=== PATIENT | male | born 1970 | race Caucasian/White ===

== ENCOUNTER 2017-07-24 13:07 | Inpatient (IN) | payer OTHER ==
[~2017-07-24] VITALS: Ht 182.9 cm; Wt 109.8 kg
[~2017-07-24 13:07] MED LIST: EMTR1TAB12 PO; LACT10SO29 PO; MULT-70 PO; STRIBILD PO; SULF1TAB44 PO
--- NOTE | 2017-07-24 13:20 | NUR ---
Was seen independently by myself. Subjective: 47 -year-old male presents the emergency room with chest pain of uncertain etiology Objective: Patient appears hemodynamically stable at this time and appears comfortable Assessment/plan: Given his age and his examination, patient will undergo a chest pain workup with anticipated admission to rule out myocardial infarction.
[2017-07-24 13:22] LABS: BASOPHILS % (AUTO) 0.8 % (0.0-2.0); EOSINOPHILS # (AUTO) 0.1 /CMM (0.0-0.7); HEMATOCRIT 35 % (39-51); LYMPHOCYTES # (AUTO) 1.3 /CMM (0.8-4.8); LYMPHOCYTES % (AUTO) 26.8 % (20.0-44.0); MEAN CORPUSCULAR HEMOGLOBIN 33 PG (26.0-33.0); MEAN CORPUSCULAR HGB CONC 34 g/dl (31.0-36.0); MEAN CORPUSCULAR VOLUME 96 fL (80-96); MONOCYTES # (AUTO) 0.5 /CMM (0.1-1.30); MONOCYTES % (AUTO) 9.8 % (2.0-12.0); NEUTROPHILS % (AUTO) 60.6 % (43.0-81.0); PLATELET COUNT (AUTO) 116 /CMM (150-450); RDW COEFFICIENT OF VARIATION 14.1 (11.5-15.0); RED BLOOD CELL COUNT(AUTO) 3.67 MIL/uL (4.5-6.0); WHITE BLOOD COUNT (AUTO) 4.9 K/uL (4.3-11.0)
[2017-07-24] MEDS ORDERED: ONDANSETRON HCL/PF 4 MG/2 ML VIAL ONE (13:24)
[2017-07-24] MEDS ORDERED: MORPHINE SULFATE INJ 4 MG/ML DISP.SYRIN ONE ×2 (13:25→14:08)
[2017-07-24] MEDS ORDERED: ASPIRIN 325 MG TABLET ONE (13:25)
--- NOTE | 2017-07-24 13:25 | NUR ---
NEW IV STARTED ON RIGHT HAND, 20 G. BLOOD DRAWN AND SENT TO LAB.
[2017-07-24] MEDS ORDERED: ONDANSETRON HCL/PF 4 MG/2 ML VIAL IVP ONE (13:30)
[2017-07-24] MEDS ORDERED: MORPHINE SULFATE INJ 2 MG/ML DISP.SYRIN IV ONE ×2 (13:30→14:30)
[2017-07-24] MEDS ORDERED: ASPIRIN 325 MG TABLET PO ONE (13:30)
[2017-07-24 13:32] LABS: CALCIUM, SERUM 8.6 mg/dL (8.5-10.1); CREATININE 0.9 mg/dL (0.6-1.3); POTASSIUM 4.5 mmol/L (3.5-5.1)
[2017-07-24 13:37] LABS: INR 1.06 (0.87-1.13)
[2017-07-24 13:38] LABS: ALBUMIN 2.7 g/dL (3.4-5.0); BILIRUBIN,DIRECT 0.5 mg/dL (0.0-0.2); BILIRUBIN,TOTAL 1.2 mg/dL (0.2-1.0); TOTAL PROTEIN, SERUM 7.7 g/dL (6.4-8.2)
[2017-07-24 13:39] LABS: TROPONIN I 0.025 ng/mL (0.00-0.056)
[2017-07-24] MEDS ORDERED: EMTR1TAB17 PO (14:12)
[2017-07-24] MEDS ORDERED: DOLU50TA PO (14:12)
[2017-07-24] MEDS ORDERED: MULT1TAB62 PO (14:12)
[2017-07-24] MEDS ORDERED: SPIR100T3 PO (14:12)
[2017-07-24] MEDS ORDERED: GABA-534 PO (14:12)
[2017-07-24] MEDS ORDERED: TRAM50TA2 PO (14:12)
--- NOTE | 2017-07-24 14:12 | NUR ---
PATIENT STILL C/O 10/10 CHEST PAIN, DASH INFORMED, ORDERED ANOTHER 4MG MORPHINE. MEDICATION ADMINISTERED.
--- NOTE | 2017-07-24 14:51 | NUR ---
PATIENTS BLOOD PRESSURE READING 77/36. MMI TEACHER, DASH INFORMED AND ORDERED 500ML NS, BUT UPON REASSESSMENT. PATIENTS BLOOD PRESSURE WAS NORMAL, 146/77. NORMAL SALINE NOT ADMINISTERED AT THIS TIME.
[2017-07-24] MEDS ORDERED: IV NS 0.9% 500 ML BAG IV ONE (15:00)
--- NOTE | 2017-07-24 15:15 | NUR ---
REPORT GIVEN TO MARYANN SOTO FOR ADMISSION.
--- NOTE | 2017-07-24 15:40 | NUR ---
PATIENT TRANSPORTED TO [facility] VIA ACLS PROTOCOL.
[2017-07-24 16:00] VITALS: BP 144/90
--- NOTE | 2017-07-24 16:00 | NUR ---
COMPLIANCE REPRESENTATIVE NOTES RECEIVED PATIENT FROM ER VIA GURNEY. PATIENT ALERT AND ORIENTED X 4. PATIENT AMBULATORY. NO ACUTE DISTRESS, NO SOB. COMPLAIN OF CHEST PAIN 9/10 SHARP, ACHING, NON-RADIATING. NOTIFIED MD, NEW ORDERS NOTED AND CARRIED OUT. IV SITE INTACT AND PATENT. KEPT PATIENT SAFE AND COMFORTABLE. BED IN LOW POSITION, LOCKED, SIDERAILS UP X2, CALL LIGHT WITHIN REACH. WILL CONTINUE TO MONITOR ACCORDINGLY.
[2017-07-24 16:15] VITALS: BP 144/90
[2017-07-24] MEDS ORDERED: ONDANSETRON HCL/PF 4 MG/2 ML VIAL IVP PRN (16:30)
[2017-07-24] MEDS ORDERED: ACETAMINOPHEN 325 MG TABLET PO PRN (16:30)
[2017-07-24] MEDS ORDERED: Z GUARD REMEDY 2 OZ OINT TP PRN (16:30)
[2017-07-24] MEDS ORDERED: MAGNESIUM HYDROXIDE 30 ML UDC PO PRN (16:30)
[2017-07-24] MEDS ORDERED: ENOXAPARIN SODIUM 40 MG/0.4 ML DISP.SYRIN SQ SCH (16:30)
[2017-07-24] MEDS ORDERED: HYDROCODONE/APAP 5/325MG 1 EACH TABLET PO PRN (16:30)
[2017-07-24] MEDS ORDERED: MAG HYDROX/AL HYDROX/SIMETH 30 ML UDC PO PRN (16:30)
[2017-07-24] MEDS ORDERED: ZOLPIDEM TARTRATE 5 MG TABLET PO PRN (16:30)
[2017-07-24] MEDS: IV NS 0.9% 1,000 ML IV PRN (16:54)
[2017-07-24] MEDS: MORPHINE SULFATE INJ 2 MG/ML DISP.SYRIN IV PRN ×2 (17:24→21:19)
[2017-07-24] MEDS ORDERED: GABAPENTIN 300 MG CAPSULE PO SCH (18:00)
--- NOTE | 2017-07-24 18:45 | NUR ---
RN NOTES PATIENT SAID HE WILL PROVIDE A COPY OF ADVANCE DIRECTIVES. ENDORSED TO ANTISUBMARINE WEAPONS OFFICER RN TO FOLLOW UP ADVANCE DIRECTIVES.
--- NOTE | 2017-07-24 19:00 | NUR ---
MEDICAL ONCOLOGIST NOTES PATIENT IN BED RESTING. NO ACUTE DISTRESS, NO SOB NOTED. ALL NEEDS ATTENDED AND PROVIDED. KEPT PATIENT SAFE AND COMFORTABLE. ENDORSED TO LACE WEAVER RN FOR CORBY.
[2017-07-24 20:00] VITALS: BP 145/105
--- NOTE | 2017-07-24 20:01 | NUR ---
RN NOTES RECEIVED PATIENT IN BED, ALERT AND ORIENTED X4, ANXIOUS, COMPLAINING OF CHEST PAIN OF 8/10, RECEIVED MORPHINE 2HRS AGO, WHEEZING, ON 2LPM VIA NC, SPO2 96%, ABLE TO VERBALIZE NEEDS, BP 145/105 HR 65, PER TELE MONITOR SR 75, NO DIAPHORESIS, NO RESTLESSNESS, KEPT HOB ELEVATED, REPOSITIONED FOR COMFORT, CALL LIGHT WITHIN REACH, WILL NOTIFY RAILWAY SIGNAL OPERATOR MD.
--- NOTE | 2017-07-24 20:17 | NUR ---
RN NOTES NOTIFIED ELECTRIC SCOOP OPERATOR DR. RANDALL GOMEZ ORDERED CLONIDINE 0.1 MG Q6HRS PRN FOR SBP > 160 OR DBP > 100, ORDER NOTED AND CARRIED OUT.
[2017-07-24] MEDS ORDERED: CLONIDINE HCL 0.1 MG TABLET PO PRN (20:30)
--- NOTE | 2017-07-24 20:50 | NUR ---
RN NOTES RECHECKED BP 143/67 HR 71, WILL CONTINUE TO MONITOR BP
--- NOTE | 2017-07-24 21:23 | NUR ---
RN NOTES COMPLAINING OF LEFT CHEST PAIN DESCRIBED PINCHING 10/10 ON THE PAIN SCALE. PER PATIENT WHEN TURNING TO LEFT SIDE, CHEST PAIN IS AT MOST PAINFUL, GIVEN MORPHINE 2 MG IVP, VSS, EDUCATED PATIENT ON MEDICATION SCHEDULE AND ADVERSE SIDE EFFECTS. WILL CONTINUE TO MONITOR, CALL LIGHT WITHIN REACH.
[2017-07-25] VITALS: BP 126/103
[2017-07-25] MEDS: MORPHINE SULFATE INJ 2 MG/ML DISP.SYRIN IV PRN ×2 (01:50→05:38)
[2017-07-25 04:00] VITALS: BP 144/75
[2017-07-25] MEDS: IV NS 0.9% 1,000 ML IV PRN (04:15)
--- NOTE | 2017-07-25 06:54 | NUR ---
RN NOTES PATIENT IN BED, ALERT AND AWAKE, ON 2LPM VIA NC, SPO2 98%, COMPLAINED OF CHEST PAIN OF 10/10, GIVEN MORPHINE 2MG IVP DURING SHIFT, TROPONIN IS NORMAL. RIGHT HAND PERIPHERAL LINE IS PATENT AND INFUSING WELL, NEEDS ATTENDED, CALL LIGHT WITHIN REACH.
[2017-07-25] MEDS ORDERED: PANTOPRAZOLE 40 MG TABLET.DR PO SCH (07:30)
--- NOTE | 2017-07-25 07:30 | NUR ---
TELE/RN OPENING NOTES RECEIVED PT. IN BED A&OX4. BREATHING UNLABORED ON OXYGEN 2L/MIN WITH NASAL CANNULA. NO S/S OF ACUTE DISTRESS. BED IS IN LOWQ POSITION, 2 SIDE RAILS UP, AND INSTRUCTED PT. TO USE CALL LIGHT FOR ASSISTANCE. ALL NEEDS MET AT THIS TIME, WILL CONTINUE TO ASSESS AND MONITOR.
--- NOTE | 2017-07-25 07:30 | NUR ---
TELE/ RN NOTES PT. TELE MONITOR READING SINUS RHYTHM 67 BPM.
[2017-07-25 07:33] LABS: BASOPHILS % (AUTO) 0.3 % (0.0-2.0); EOSINOPHILS # (AUTO) 0.1 /CMM (0.0-0.7); EOSINOPHILS % (AUTO) 2.6 % (0.0-6.0); HEMATOCRIT 32 % (39-51); HEMOGLOBIN 11.1 g/dL (13.5-17.5); LYMPHOCYTES % (AUTO) 22.5 % (20.0-44.0); MEAN CORPUSCULAR HEMOGLOBIN 33 PG (26.0-33.0); MEAN CORPUSCULAR HGB CONC 34 g/dl (31.0-36.0); MEAN CORPUSCULAR VOLUME 97 fL (80-96); MONOCYTES # (AUTO) 0.6 /CMM (0.1-1.30); NEUTROPHILS # (AUTO) 2.8 /CMM (1.8-8.9); NEUTROPHILS % (AUTO) 61.6 % (43.0-81.0); PLATELET COUNT (AUTO) 101 /CMM (150-450); RDW COEFFICIENT OF VARIATION 14.9 (11.5-15.0); RED BLOOD CELL COUNT(AUTO) 3.33 MIL/uL (4.5-6.0); WHITE BLOOD COUNT (AUTO) 4.6 K/uL (4.3-11.0)
[2017-07-25 08:00] VITALS: BP 145/79
[2017-07-25] MEDS ORDERED: EMTRICITABINE/TENOFOVIR 1 TAB PO SCH (09:00)
[2017-07-25] MEDS ORDERED: SPIRONOLACTONE 25 MG TABLET PO SCH (09:00)
[2017-07-25] MEDS ORDERED: MULTIVIT, IRON, MIN NO. 8, FA 1 TAB PO SCH (09:00)
[2017-07-25] MEDS ORDERED: TRAMADOL HCL 50 MG TABLET PO SCH (09:00)
[2017-07-25] MEDS ORDERED: ASPIRIN 325 MG TABLET PO SCH (09:00)
[2017-07-25] MEDS ORDERED: Medication Not On Formulary EA (Emtricitabine/Tenofov Alafenam (Descovy 200-25 mg Tablet PO SCH (09:00)
[2017-07-25] MEDS ORDERED: Medication Not On Formulary EA (Dolutegravir Sodium (Tivicay) 50 MG) PO SCH (09:00)
[2017-07-25] MEDS ORDERED: SPIRONOLACTONE 50 MG TABLET PO SCH (09:00)
[2017-07-25 09:24] LABS: CALCIUM, SERUM 8.2 mg/dL (8.5-10.1); CREATININE 0.9 mg/dL (0.6-1.3); MAGNESIUM 1.9 mg/dL (1.8-2.4); PHOSPHORUS 3.8 mg/dL (2.5-4.9)
[2017-07-25 09:52] LABS: IRON, SERUM 234 ug/dl (50-175); TOTAL IRON BINDING CAPACITY 334 ug/dl (250-450)
[2017-07-25 10:06] LABS: FERRITIN 89 ng/mL (8-388)
--- NOTE | 2017-07-25 14:40 | NUR ---
RN NOTES PT. IS IN MEDICALLY STABLE CONDITION. PT. WAS PROVIDED DISCHARGE INSTRUCTIONS, PAPERS WERE SIGNED AND PT. VERBALIZED UNDERSTANDING. PT.'S BELONGINGS WERE CHECKED, AND SIGNED. ALL QUESTIONS WERE ANSWERED.
--- NOTE | 2017-07-25 15:01 | NUR ---
RN NOTES DISCHARGE PT. LEFT IN MEDICALLY STABLE CONDITION, PT. WAS ABLE TO AMBULATE TO MAIN [facility]. PT. LEFT IN PRIVATE CARE ACCOMPANIED BY HIS MOTHER.
== END 2017-07-25 15:00 | disposition home or self-care (01) | DRG 313 ==
LOC: ER 13:08 → TELE 15:13 → MED 07-25 11:26
PROVIDERS: ADMIT Internal Medicine; ATTEND Internal Medicine
DX: R07.89 Other chest pain (principal); E43 Unspecified severe protein-calorie malnutrition; D69.59 Other secondary thrombocytopenia; B19.20 Unspecified viral hepatitis C without hepatic coma; D63.8 Anemia in other chronic diseases classified elsewhere; E66.9 Obesity, unspecified; K74.60 Unspecified cirrhosis of liver; Z79.899 Other long term (current) drug therapy; Z90.49 Acquired absence of other specified parts of digestive tract; F41.9 Anxiety disorder, unspecified; F32.9 Major depressive disorder, single episode, unspecified; Z76.5 Malingerer [conscious simulation]
CPT/HCPCS: 36415; 71010-TC; 80048-TC; 80061-TC; 80076-TC; 82728-TC; 83540-TC; 83735-TC; 84100-TC; 84484-TC; 85025-TC; 85730-TC; 87081-TC; A4606; J2270; J2405; J7030; J7040; Z7610

== ENCOUNTER 2017-08-08 21:50 | Inpatient (IN) | payer OTHER ==
[~2017-08-08] VITALS: Ht 182.9 cm; Wt 107.5 kg
[~2017-08-08 21:50] MED LIST changes: +DOLU50TA PO; -EMTR1TAB12 PO; +EMTR1TAB17 PO; +GABA-534 PO; -LACT10SO29 PO; -MULT-70 PO; +MULT1TAB62 PO; +SPIR100T3 PO; -STRIBILD PO; -SULF1TAB44 PO; +TRAM50TA2 PO
[2017-08-08 22:37] LABS: BASOPHILS % (AUTO) 0.3 % (0.0-2.0); EOSINOPHILS # (AUTO) 0.1 /CMM (0.0-0.7); EOSINOPHILS % (AUTO) 2.3 % (0.0-6.0); HEMATOCRIT 33 % (39-51); HEMOGLOBIN 11.3 g/dL (13.5-17.5); LYMPHOCYTES # (AUTO) 1.3 /CMM (0.8-4.8); LYMPHOCYTES % (AUTO) 20.3 % (20.0-44.0); MEAN CORPUSCULAR HEMOGLOBIN 33 PG (26.0-33.0); MEAN CORPUSCULAR HGB CONC 34 g/dl (31.0-36.0); MEAN CORPUSCULAR VOLUME 96 fL (80-96); MONOCYTES # (AUTO) 0.7 /CMM (0.1-1.30); MONOCYTES % (AUTO) 10.6 % (2.0-12.0); NEUTROPHILS # (AUTO) 4.3 /CMM (1.8-8.9); NEUTROPHILS % (AUTO) 66.5 % (43.0-81.0); PLATELET COUNT (AUTO) 124 /CMM (150-450); RDW COEFFICIENT OF VARIATION 15.4 (11.5-15.0); RED BLOOD CELL COUNT(AUTO) 3.46 MIL/uL (4.5-6.0); WHITE BLOOD COUNT (AUTO) 6.5 K/uL (4.3-11.0)
[2017-08-08 22:44] LABS: CALCIUM, SERUM 8.5 mg/dL (8.5-10.1); CREATININE 0.8 mg/dL (0.6-1.3); POTASSIUM 4.2 mmol/L (3.5-5.1)
[2017-08-09 01:00] VITALS: BP 143/71
[2017-08-09 04:00] VITALS: BP 139/65
[2017-08-09 08:08] VITALS: BP 140/70
[2017-08-09 16:00] VITALS: BP 119/71
[2017-08-09 17:12] LABS: APPEARANCE,URINE CLEAR (CLEAR); BILIRUBIN,URINE NEGATIVE (NEGATIVE); BLOOD, URINE NEGATIVE Ery/uL (NEGATIVE); COLOR,URINE YELLOW (YELLOW); KETONES,URINE NEGATIVE (NEGATIVE); LEUKOCYTE ESTERASE ,URINE NEGATIVE (NEGATIVE); NITRITE, URINE NEGATIVE (NEGATIVE); PROTEIN,URINE NEGATIVE (NEGATIVE); UGLUCOSE NEGATIVE (NEGATIVE)
[2017-08-09 17:44] LABS: BACTERIA,URINE None seen /HPF (None Seen); RBC,URINE 0-2 /HPF (0-2); SQUAMOUS EPITHELIAL CELL,UR 0-2 /HPF (None Seen); WBC,URINE 0-2 /HPF (0-3)
[2017-08-09 20:00] VITALS: BP 92/62
[2017-08-10] VITALS: BP 124/58
[2017-08-10 04:00] VITALS: BP 105/53
[2017-08-10 06:38] LABS: INR 1.06 (0.87-1.13); PROTHROMBIN TIME 11.4 SECS (9.5-12.7)
[2017-08-10 06:41] LABS: BASOPHILS % (AUTO) 0.3 % (0.0-2.0); EOSINOPHILS # (AUTO) 0.2 /CMM (0.0-0.7); EOSINOPHILS % (AUTO) 4.2 % (0.0-6.0); HEMATOCRIT 30 % (39-51); HEMOGLOBIN 10.3 g/dL (13.5-17.5); LYMPHOCYTES # (AUTO) 0.9 /CMM (0.8-4.8); LYMPHOCYTES % (AUTO) 25.9 % (20.0-44.0); MEAN CORPUSCULAR HEMOGLOBIN 34 PG (26.0-33.0); MEAN CORPUSCULAR HGB CONC 35 g/dl (31.0-36.0); MEAN CORPUSCULAR VOLUME 96 fL (80-96); MONOCYTES # (AUTO) 0.4 /CMM (0.1-1.30); MONOCYTES % (AUTO) 10.8 % (2.0-12.0); NEUTROPHILS # (AUTO) 2.1 /CMM (1.8-8.9); NEUTROPHILS % (AUTO) 58.8 % (43.0-81.0); PLATELET COUNT (AUTO) 102 /CMM (150-450); RDW COEFFICIENT OF VARIATION 15.1 (11.5-15.0); RED BLOOD CELL COUNT(AUTO) 3.09 MIL/uL (4.5-6.0); WHITE BLOOD COUNT (AUTO) 3.6 K/uL (4.3-11.0)
[2017-08-10 06:52] LABS: ALBUMIN 2.3 g/dL (3.4-5.0); BILIRUBIN,DIRECT 0.5 mg/dL (0.0-0.2); BILIRUBIN,TOTAL 1.6 mg/dL (0.2-1.0); CALCIUM, SERUM 7.9 mg/dL (8.5-10.1); CREATININE 0.8 mg/dL (0.6-1.3); MAGNESIUM 1.8 mg/dL (1.8-2.4); PHOSPHORUS 3.6 mg/dL (2.5-4.9); POTASSIUM 3.9 mmol/L (3.5-5.1); TOTAL PROTEIN, SERUM 6.4 g/dL (6.4-8.2)
[2017-08-10 07:15] VITALS: BP 95/50
[2017-08-10 08:00] VITALS: BP 96/50
[2017-08-10] MEDS ORDERED: HYDR-552 PO (15:22)
== END 2017-08-10 18:13 | disposition home or self-care (01) | DRG 185 ==
LOC: ER 21:51 → TELE 08-09 00:41 → MED 08-10 08:30
PROVIDERS: ADMIT Internal Medicine; ATTEND Internal Medicine
DX: S22.42XA Multiple fractures of ribs, left side, initial encounter for closed fracture (principal); K74.60 Unspecified cirrhosis of liver; D73.2 Chronic congestive splenomegaly; J43.9 Emphysema, unspecified; N28.1 Cyst of kidney, acquired; S01.81XA Laceration without foreign body of other part of head, initial encounter; D63.8 Anemia in other chronic diseases classified elsewhere; R16.1 Splenomegaly, not elsewhere classified; G89.29 Other chronic pain; Y92.89 Other specified places as the place of occurrence of the external cause; Z86.19 Personal history of other infectious and parasitic diseases; Z90.49 Acquired absence of other specified parts of digestive tract; I51.7 Cardiomegaly; I86.8 Varicose veins of other specified sites; W01.0XXA Fall on same level from slipping, tripping and stumbling without subsequent striking against object, initial encounter; Y93.9 Activity, unspecified; Y99.9 Unspecified external cause status; K21.9 Gastro-esophageal reflux disease without esophagitis
CPT/HCPCS: 36415; 70450-TC; 71010-TC; 71260-TC; 73060-TC; 73090-TC; 76700-TC; 80048-TC; 80061-TC; 80076-TC; 81000-TC; 83540-TC; 83735-TC; 84100-TC; 85025-TC; 85730-TC; 87081-TC; 87086-TC; 93307-TC; 97116-TC; 97530-TC; A4606; A6402; J2270; J2405; J3490; J7050; Q9967; Z7610

== ENCOUNTER 2017-10-31 17:57 | Emergency (ER) | payer OTHER ==
[~2017-10-31] VITALS: Ht 172.7 cm; Wt 83.9 kg
[~2017-10-31 17:57] MED LIST changes: +HYDR-552 PO
[2017-10-31 18:13] VITALS: BP 154/89
[2017-10-31] MEDS ORDERED: HYDROCODONE/APAP 5/325MG 1 EACH TABLET ONE (18:40)
[2017-10-31] MEDS ORDERED: HYDROCODONE/APAP 5/325MG 1 EACH TABLET PO ONE (19:00)
== END 2017-10-31 19:03 | disposition home or self-care (01) ==
LOC: ER 17:58
DX: K02.9 Dental caries, unspecified (principal); Z86.19 Personal history of other infectious and parasitic diseases; Z90.49 Acquired absence of other specified parts of digestive tract
CPT/HCPCS: A4606; Z7610

== ENCOUNTER 2019-02-23 23:49 | Inpatient (IN) | payer OTHER ==
[~2019-02-23] VITALS: Ht 182.9 cm; Wt 105.2 kg
[~2019-02-23 23:49] MED LIST changes: +HYDR-4384 PO; -HYDR-552 PO; -SPIR100T3 PO; +SPIR100T5 PO
[2019-02-24] VITALS (8 sets, daily range): BP systolic 105–123; BP diastolic 51–74
--- NOTE | 2019-02-24 00:06 | NUR ---
PT BIBWIFE FROM HOME C/C SOB X1 WEEK W/ NON PRODUCTIVE COUGH. FEBRILE. -N/V/D. DENIES CP. C/O OF CHRONIC RUQ ABD PAIN NR. NAD NOTED. PT ON MONITOR IN BED 11. WILL CONTINUE TO MONITOR.
--- NOTE | 2019-02-24 00:13 | NUR ---
AT BEDSIDE FOR EVAL
--- NOTE | 2019-02-24 00:24 | NUR ---
RT CALLED FOR BREATHING TREATMENT
[2019-02-24] MEDS ORDERED: ALBUTEROL FS 2.5 MG/3 ML VIAL.NEB ONE (00:27)
[2019-02-24] MEDS ORDERED: IPRATROPIUM NEB FS 0.5 MG/2.5 ML AMPUL.NEB ONE (00:27)
[2019-02-24] MEDS ORDERED: methylPREDNISolone SOD SUCC 125 MG/2ML VIAL IV ONE (00:30)
[2019-02-24] MEDS ORDERED: IPRATROPIUM NEB FS 0.5 MG/2.5 ML AMPUL.NEB NEB ONE (00:30)
[2019-02-24] MEDS ORDERED: ALBUTEROL FS 2.5 MG/3 ML VIAL.NEB CONTNEB ONE (00:30)
[2019-02-24] MEDS ORDERED: methylPREDNISolone SOD SUCC 125 MG/2ML VIAL ONE (00:31)
--- NOTE | 2019-02-24 00:40 | NUR ---
BLOOD DRAWN AND GIVEN TO LAB
--- NOTE | 2019-02-24 00:44 | NUR ---
TECH AT BEDSIDE FOR EKG
[2019-02-24 00:51] LABS: BASOPHILS % (AUTO) 0.3 % (0.0-2.0); EOSINOPHILS % (AUTO) 0.2 % (0.0-6.0); HEMATOCRIT 32 % (39-51); HEMOGLOBIN 11.1 g/dL (13.5-17.5); LYMPHOCYTES % (AUTO) 15.7 % (20.0-44.0); MEAN CORPUSCULAR HGB CONC 35 g/dl (31.0-36.0); MEAN CORPUSCULAR VOLUME 92 fL (80-96); MONOCYTES # (AUTO) 0.8 /CMM (0.1-1.30); MONOCYTES % (AUTO) 11.5 % (2.0-12.0); NEUTROPHILS # (AUTO) 4.8 /CMM (1.8-8.9); NEUTROPHILS % (AUTO) 72.3 % (43.0-81.0); PLATELET COUNT (AUTO) 124 /CMM (150-450); RED BLOOD CELL COUNT(AUTO) 3.45 MIL/uL (4.5-6.0); WHITE BLOOD COUNT (AUTO) 6.6 K/uL (4.3-11.0)
--- NOTE | 2019-02-24 00:52 | NUR ---
RADIOLOGY AT BEDSIDE FOR XRAY
[2019-02-24 01:25] LABS: SERUM AMMONIA 58 umol/L (11-32)
[2019-02-24 01:27] LABS: ALCOHOL, BLOOD < 3 mg/dL (0-0)
[2019-02-24] MEDS ORDERED: IV NS 0.9% 1,000 ML BAG IV ONE ×2 (01:30→03:30)
[2019-02-24] MEDS ORDERED: VANCOMYCIN 1 GM in IV D5W 250 ML IV ONE (01:30)
[2019-02-24] MEDS ORDERED: PIPERACILLIN /TAZOBACTAM 3.375 G in IV D5W 50 ML IV ONE (01:30)
[2019-02-24 01:34] LABS: CALCIUM, SERUM 8.7 mg/dL (8.5-10.1); CARBON DIOXIDE 20 mmol/L (21-32); CHLORIDE 100 mmol/L (98-107); CREATININE 1.1 mg/dL (0.6-1.3); GLUCOSE 115 mg/dL (74-106); POTASSIUM 2.9 mmol/L (3.5-5.1); SODIUM SERUM 133 mmol/L (136-145); UREA NITROGEN, BLOOD 16 mg/dL (7-18)
[2019-02-24 01:40] LABS: ALANINE AMINOTRANSFERASE 27 U/L (12-78); ALBUMIN 2.1 g/dL (3.4-5.0); ALKALINE PHOSPHATASE 129 U/L (46-116); ASPARTATE AMINOTRANSFERASE 46 U/L (15-37); BILIRUBIN,DIRECT 2.4 mg/dL (0.0-0.2); BILIRUBIN,TOTAL 3.6 mg/dL (0.2-1.0); TOTAL PROTEIN, SERUM 8.2 g/dL (6.4-8.2)
[2019-02-24] MEDS ORDERED: PIPERACILLIN /TAZOBACTAM 3.375 G VIAL IV ONE (01:48)
[2019-02-24] MEDS ORDERED: LACTULOSE 10 G/15 ML UDC (PYXIS) PO ONE (02:00)
[2019-02-24] MEDS ORDERED: POTASSIUM CHLORIDE 20 MEQ TAB.PRT.SR PO ONE (02:00)
[2019-02-24] MEDS ORDERED: VANCOMYCIN 1 GM VIAL ONE (02:17)
[2019-02-24 02:43] LABS: APPEARANCE,URINE CLEAR (CLEAR); BILIRUBIN,URINE 1+ (NEGATIVE); BLOOD, URINE 3+ Ery/uL (NEGATIVE); COLOR,URINE YELLOW (YELLOW); KETONES,URINE NEGATIVE (NEGATIVE); LEUKOCYTE ESTERASE ,URINE NEGATIVE (NEGATIVE); NITRITE, URINE NEGATIVE (NEGATIVE); PH,URINE 6.5 (5.0-8.0); PROTEIN,URINE TRACE mg/dl (NEGATIVE); UGLUCOSE NEGATIVE (NEGATIVE)
[2019-02-24 03:00] LABS: RBC,URINE TOO NUMEROUS TO COUN /HPF (0-2)
[2019-02-24 03:01] LABS: BACTERIA,URINE Few /HPF (None Seen); SQUAMOUS EPITHELIAL CELL,UR Few /HPF (None Seen)
[2019-02-24] MEDS: POTASSIUM CL. PREMIX PERIPHER. 50 ML IV SCH ×4 (03:30→17:35)
--- NOTE | 2019-02-24 03:39 | NUR ---
FLUIDS STOPPED, PER MD ORDER.
--- NOTE | 2019-02-24 03:57 | NUR ---
PT PULLED OUT IV
--- NOTE | 2019-02-24 04:18 | NUR ---
REPORT GIVEN TO CHARLES VALENTE FOR CORBY
--- NOTE | 2019-02-24 05:00 | NUR ---
TELE/RN NOTES RECEIVED NEW ADMIT PATIENT ARRIVED ON A GURNEY CAME FROM ER, PATIENT ALERT, ORIENTED X4, TACHYPNEIC, REQUIRE OXYGEN VIA NC AT 2LITER, SKIN WARM TO TOUCH, RESPIRATIONS LABORED, REPORTED PAIN IN ABDOMEN 8/10 BUT TOLERABLE. CAN AMBULATES WITH ASSISTANCE, USES URINAL, CALL LIGHTS WITHIN REACH, ROOM ORIENTATION PROVIDED, BELONGINGS CHECK. PATIETN ADMITTED FOR COPD EXACERBATION AND SEPSIS WITH REPORTED LACTIC ACID ELEVATED AT 6.1, AMONIA ELEVATED. . MD FAYE ADMITTING MD,POTASSIUM KCL NEED TO REPLACE 40 MEQ TOTAL, ONE BAG WAS REPLACED AT ER, TO CONTINUE AT THE FLOOR THE REMAINING 3.
[2019-02-24] MEDS ORDERED: HYDROCODONE/APAP 5/325MG 1 EACH TABLET PO PRN (06:00)
[2019-02-24] MEDS ORDERED: Potassium Chloride 30 MEQ in IV NS 0.9% 1,000 ML IV SCH (06:00)
--- NOTE | 2019-02-24 06:30 | NUR ---
tele/rn notes ENDORSED TO AM RM FOR CORBY. PATIENT AWAKE, ALERT X3, ABLE TO VERBALIZE NEEDS, TACHYPNEIC, ON NASAL CANUULA AT 2 LITER OXYGEN.BED LOCKED, CALL LIGHTS WITHIN REACH.
[2019-02-24] MEDS ORDERED: ACETAMINOPHEN 325 MG TABLET PO PRN (07:30)
[2019-02-24] MEDS ORDERED: ONDANSETRON HCL/PF 4 MG/2 ML VIAL IVP PRN (07:30)
[2019-02-24 07:55] LABS: BASOPHILS % (AUTO) 0.2 % (0.0-2.0); HEMATOCRIT 30 % (39-51); HEMOGLOBIN 10.3 g/dL (13.5-17.5); LYMPHOCYTES # (AUTO) 0.2 /CMM (0.8-4.8); LYMPHOCYTES % (AUTO) 7.5 % (20.0-44.0); MEAN CORPUSCULAR HGB CONC 35 g/dl (31.0-36.0); MEAN CORPUSCULAR VOLUME 93 fL (80-96); MONOCYTES # (AUTO) 0.2 /CMM (0.1-1.30); MONOCYTES % (AUTO) 5.7 % (2.0-12.0); NEUTROPHILS # (AUTO) 2.8 /CMM (1.8-8.9); NEUTROPHILS % (AUTO) 86.6 % (43.0-81.0); PLATELET COUNT (AUTO) 82 /CMM (150-450); RED BLOOD CELL COUNT(AUTO) 3.16 MIL/uL (4.5-6.0); WHITE BLOOD COUNT (AUTO) 3.3 K/uL (4.3-11.0)
[2019-02-24 08:04] LABS: CALCIUM, SERUM 8.2 mg/dL (8.5-10.1); CREATININE 1.3 mg/dL (0.6-1.3); POTASSIUM 3.1 mmol/L (3.5-5.1)
[2019-02-24 08:16] LABS: ALBUMIN 1.9 g/dL (3.4-5.0); MAGNESIUM 1.8 mg/dL (1.8-2.4); PHOSPHORUS 3.2 mg/dL (2.5-4.9); THYROID STIMULATING HORMONE 1.317 uIU/mL (0.358-3.74); TOTAL PROTEIN, SERUM 7.7 g/dL (6.4-8.2)
[2019-02-24 08:43] LABS: LYMPHOCYTES % (MANUAL) 5 % (16-48); MONOCYTES % (MANUAL) 6 % (0-11.0); NEUTROPHILS % (MANUAL) 89 (42-76)
[2019-02-24] MEDS ORDERED: FEE PK DOSING 1 MIN EA MC ONE (08:52)
[2019-02-24] MEDS: FLUTICASONE/VILANTEROL 1 EACH BLST.W.DEV IH SCH (09:53)
[2019-02-24] MEDS: MULTIVIT W/MINERALS 1 TAB TABLET PO SCH (10:03)
[2019-02-24] MEDS: FUROSEMIDE 20 MG/2 ML VIAL IV SCH (10:03)
[2019-02-24] MEDS: PANTOPRAZOLE 40 MG TABLET.DR PO SCH (10:03)
--- NOTE | 2019-02-24 10:15 | NUR ---
TELE/RN NOTE DR NUGENT IS MADE AWARE OF LACTIC ACID LEVEL OF 6.1.
[2019-02-24] MEDS ORDERED: IOHEXOL-300 100 ML VIAL IV ONE (11:04)
[2019-02-24] MEDS ORDERED: IV NS 0.9% 250 ML IV ONE (11:04)
[2019-02-24] MEDS ORDERED: CT SWABBABLE VALVE TRANS SET 1 EA INFUS.SET MC ONE (11:04)
--- NOTE | 2019-02-24 12:14 | NUR ---
TELE/RN NOTE PER DR NUGENT CHANGED DIET FROM FULL LIQUID TO SOFT DIET. NOTED AND CARRIED OUT.
[2019-02-24] MEDS: methylPREDNISolone SOD SUCC 125 MG/2ML VIAL IV SCH ×2 (12:32→18:24)
[2019-02-24] MEDS: PIPERACILLIN /TAZOBACTAM 3.375 G in IV D5W 50 ML IV SCH ×2 (13:22→19:47)
[2019-02-24] MEDS: VANCOMYCIN 1.25 GM in IV D5W 500 ML IV SCH (15:16)
--- NOTE | 2019-02-24 18:10 | NUR ---
TELE/RN NOTE THE PATIENT ALERT AND ORIENTED X3. IN ROOM AIR AND DENIES SOB AND SATURATION IS AT 94%. RESPIRATION REGULAR AND UNLABORED. DENIES SOB. DENIES PAIN. THE PATIENT IN NO APPARENT DISTRESS. LAC G 20 PATENT AND NO S/S INFILTRATION NOTED. BED LOW AND LOCKED. SIDE RAILS UP X3. CALL LIGHT WITHIN REACH. WILL ENDORSE TO DECORATIVE GREENS CUTTER.
--- NOTE | 2019-02-24 18:16 | NUR ---
TELE/RN NOTE SUPERVISOR TICKET SALES WILL BE ENDORSED TO ADMINISTER ZOSYN 3.375 G DUE AT 1800. THE MEDICATION WILL BE ADMINISTERED LATE DUE TO PATIENT HAVING MULTIPLE IV MEDICATIONS AND ONE IV LINE DUE TO BEING HEAD STICK.
[2019-02-24] MEDS: GABAPENTIN 300 MG CAPSULE PO SCH (18:24)
--- NOTE | 2019-02-24 19:30 | NUR ---
ENRICHMENT SPECIALIST NOTES RECEIVED A/O X3,ON SEMI FOWLERS POSITION,NOTED MILD SHORTNESS OF BREATH,O2 IN USED AT 2L/NC.SALINE LOCK LEFT AC INTACT AND PATENT.VANCOMYCIN INFUSING VIA IV PUMP.DENIES PAIN DISCOMFORTS.CALL LIGHT IN REACH,NEEDS ANTICIPATED.
--- NOTE | 2019-02-24 21:35 | NUR ---
PHARMACEUTICAL SERVICE REPRESENTATIVE NOTES SR-83 ON TELE MONITOR.
[2019-02-25] VITALS: BP 123/77
[2019-02-25] MEDS: PIPERACILLIN /TAZOBACTAM 3.375 G in IV D5W 50 ML IV SCH ×4 (00:46→18:54)
--- NOTE | 2019-02-25 01:00 | NUR ---
GATE GUARD NOTES IV SITE INFILTRATED.NEW SALINE LOCK PLACE ON RIGHT HAND WITH ANGIO #22,IV ABX INFUSING AT THIS TIME.
[2019-02-25] MEDS: VANCOMYCIN 1.25 GM in IV D5W 500 ML IV SCH ×2 (02:04→16:47)
[2019-02-25] MEDS: ALBUTEROL HALF STRENGTH 1.25 MG/3 ML VIAL.NEB NEB PRN (03:37)
[2019-02-25] MEDS: IPRATROPIUM NEB FS 0.5 MG/2.5 ML AMPUL.NEB NEB PRN (03:37)
[2019-02-25 04:00] VITALS: BP 95/53
[2019-02-25 04:36] VITALS: BP 95/53
--- NOTE | 2019-02-25 06:12 | NUR ---
SECOND BAKER NOTES LAYING ON BED,IV ABX IN PROGRESS,NOTED WHEEZING ON EXERTION BUT NO SHORTNESS ON BREATH,O2 IN USED AT 2 LITERS,IV ABX TOLERATED WELL.IN NO ACUTE DISTRESS.WILL ENDORSE TO DAY NURSE FOR CORBY.
[2019-02-25 07:06] LABS: BASOPHILS % (AUTO) 0.3 % (0.0-2.0); EOSINOPHILS % (AUTO) 0.1 % (0.0-6.0); HEMATOCRIT 30 % (39-51); HEMOGLOBIN 9.9 g/dL (13.5-17.5); LYMPHOCYTES # (AUTO) 0.3 /CMM (0.8-4.8); LYMPHOCYTES % (AUTO) 9.7 % (20.0-44.0); MEAN CORPUSCULAR HGB CONC 33 g/dl (31.0-36.0); MEAN CORPUSCULAR VOLUME 97 fL (80-96); MONOCYTES # (AUTO) 0.2 /CMM (0.1-1.30); MONOCYTES % (AUTO) 8.3 % (2.0-12.0); NEUTROPHILS # (AUTO) 2.2 /CMM (1.8-8.9); NEUTROPHILS % (AUTO) 81.6 % (43.0-81.0); PLATELET COUNT (AUTO) 81 /CMM (150-450); RED BLOOD CELL COUNT(AUTO) 3.06 MIL/uL (4.5-6.0); WHITE BLOOD COUNT (AUTO) 2.7 K/uL (4.3-11.0)
--- NOTE | 2019-02-25 07:30 | NUR ---
RN MS NOTES Received patient on 2l Nasal cannula, no sob noted, patient is not getting IV fluids at this time, although the IV line remains intact, patient denies pain, bed is in lowest setting, call light within reach.
[2019-02-25 07:39] LABS: CALCIUM, SERUM 8.7 mg/dL (8.5-10.1); MAGNESIUM 2.1 mg/dL (1.8-2.4); PHOSPHORUS 2.3 mg/dL (2.5-4.9); POTASSIUM 4.4 mmol/L (3.5-5.1)
[2019-02-25 08:00] VITALS: BP 97/84
[2019-02-25 08:25] LABS: BAND % (MANUAL) 2 % (0.0-5.0); EOSINOPHILS % (MANUAL) 1 % (0-4); LYMPHOCYTES % (MANUAL) 16 % (16-48); MONOCYTES % (MANUAL) 7 % (0-11.0); NEUTROPHILS % (MANUAL) 74 (42-76)
[2019-02-25] MEDS ORDERED: EMTRICITABINE PO SCH (09:00)
[2019-02-25] MEDS ORDERED: TENOFOV ALAFENAM PO SCH (09:00)
[2019-02-25] MEDS: FUROSEMIDE 20 MG/2 ML VIAL IV SCH (09:07)
[2019-02-25] MEDS: MULTIVIT W/MINERALS 1 TAB TABLET PO SCH (09:07)
[2019-02-25] MEDS: PANTOPRAZOLE 40 MG TABLET.DR PO SCH (09:07)
[2019-02-25] MEDS: methylPREDNISolone SOD SUCC 125 MG/2ML VIAL IV SCH ×3 (09:08→16:47)
--- NOTE | 2019-02-25 09:41 | NUR ---
RN NOTES Asked patient about his home medications, Tivicay 50 mg and Descovy 200-25 mg tablet, patient stated that family will bring it today Thursday02-25-2019.
--- NOTE | 2019-02-25 10:04 | NUR ---
RN MS NOTES Called pharmacy for a replacement fluticasone, could not locate the medication. Charge nurse aware.
[2019-02-25 10:32] LABS: ALBUMIN 1.8 g/dL (3.4-5.0); BILIRUBIN,DIRECT 0.8 mg/dL (0.0-0.2); BILIRUBIN,TOTAL 1.6 mg/dL (0.2-1.0); TOTAL PROTEIN, SERUM 7.5 g/dL (6.4-8.2)
[2019-02-25] MEDS: FLUTICASONE/VILANTEROL 1 EACH BLST.W.DEV IH SCH (11:30)
[2019-02-25] MEDS ORDERED: NEUTRA PHOS 1 POWD.PACKET PO ONE (11:30)
--- NOTE | 2019-02-25 11:32 | NUR ---
RN MS NOTES Patient refused fluticasone, patient stated that it makes him throw up.
[2019-02-25 16:00] VITALS: BP 113/73
[2019-02-25] MEDS: GABAPENTIN 300 MG CAPSULE PO SCH (18:00)
--- NOTE | 2019-02-25 18:43 | NUR ---
RN CLOSING MS NOTES Patient remains on 2 L nasal cannula, no sob noted. Patient remains a/o x3. Patient tested positive for MRSA. Patient continent, and is BRP. Steady gait going to the restroom. Patient is currently no IVF due to congestion. Patient's mother brought in his home medications, but stated that he does not take 2 of the medications that was in the list. Tivicay and Descovy, patient stated and showed me that he only takes Biktarvy. Pharmacy aware of the situation. Patient's bed is at the lowest setting, call light within reach. Will give bedside report to the night RN.
--- NOTE | 2019-02-25 19:30 | NUR ---
MS/RN NOTES RECEIVED PT. SITTING UP IN BED. PT. IS AWAKE, ALERT AND ORIENTED X3. BREATHING EVEN AND UNLABORED ON 2LPM O2 VIA NC. NO SOB, RESPIRATORY DISTRESS OR COMPLAINTS OF PAIN NOTED AT THIS TIME. PT. WITH RIGHT HAND 22 GAUGE IV SALINE LOCK PRESENT, PATENT AND INTACT. ISOLATION AND SAFETY PRECAUTIONS IMPLEMENTED AND IN PLACE. BED LOCKED AND IN LOWEST POSITION, SIDE RAILS UP X2, CALL LIGHT WITHIN REACH, WILL CONTINUE TO MONITOR.
[2019-02-26] MEDS: PIPERACILLIN /TAZOBACTAM 3.375 G in IV D5W 50 ML IV SCH ×5 (00:11→23:57)
[2019-02-26] MEDS: ALBUTEROL HALF STRENGTH 1.25 MG/3 ML VIAL.NEB NEB PRN ×2 (00:22→18:19)
[2019-02-26] MEDS: IPRATROPIUM NEB FS 0.5 MG/2.5 ML AMPUL.NEB NEB PRN ×2 (00:22→18:19)
[2019-02-26] MEDS: VANCOMYCIN 1.25 GM in IV D5W 500 ML IV SCH ×2 (01:30→14:02)
[2019-02-26 06:32] LABS: BASOPHILS % (AUTO) 0.6 % (0.0-2.0); EOSINOPHILS % (AUTO) 1.4 % (0.0-6.0); HEMATOCRIT 28 % (39-51); HEMOGLOBIN 9.8 g/dL (13.5-17.5); LYMPHOCYTES # (AUTO) 0.4 /CMM (0.8-4.8); MEAN CORPUSCULAR HGB CONC 35 g/dl (31.0-36.0); MEAN CORPUSCULAR VOLUME 94 fL (80-96); MONOCYTES # (AUTO) 0.4 /CMM (0.1-1.30); MONOCYTES % (AUTO) 9.2 % (2.0-12.0); NEUTROPHILS # (AUTO) 3.5 /CMM (1.8-8.9); NEUTROPHILS % (AUTO) 78.8 % (43.0-81.0); PLATELET COUNT (AUTO) 90 /CMM (150-450); RED BLOOD CELL COUNT(AUTO) 2.96 MIL/uL (4.5-6.0); WHITE BLOOD COUNT (AUTO) 4.4 K/uL (4.3-11.0)
--- NOTE | 2019-02-26 06:45 | NUR ---
MS/RN NOTES PT. IS LYING IN BED, AWAKE, ALERT AND ORIENTED X3. BREATHING EVEN AND UNLABORED ON 2LPM O2 VIA NC. NO SOB, RESPIRATORY DISTRESS OR COMPLAINTS OF PAIN NOTED AT THIS TIME. PT. WITH RIGHT HAND 22 GAUGE IV SALINE LOCK PRESENT, PATENT AND INTACT. ISOLATION AND SAFETY PRECAUTIONS IMPLEMENTED AND IN PLACE. ALL PT. NEEDS MET. BED LOCKED AND IN LOWEST POSITION, SIDE RAILS UP X2, CALL LIGHT WITHIN REACH, WILL ENDORSE TO DAYSHIFT NURSE FOR CONTINUITY OF CARE.
[2019-02-26 06:57] LABS: ALBUMIN 1.7 g/dL (3.4-5.0); BILIRUBIN,DIRECT 0.6 mg/dL (0.0-0.2); BILIRUBIN,TOTAL 1.4 mg/dL (0.2-1.0); CALCIUM, SERUM 8.4 mg/dL (8.5-10.1); PHOSPHORUS 2.6 mg/dL (2.5-4.9); POTASSIUM 4.5 mmol/L (3.5-5.1); TOTAL PROTEIN, SERUM 7.1 g/dL (6.4-8.2)
--- NOTE | 2019-02-26 07:45 | NUR ---
MS RN OPENING NOTES RECEIVED PT IN BED, AWAKE AND ALERT. ON CONTACT ISOLATION FOR MRSA OF NARES. HOB ELEVATED. ON SUPPLEMENTAL OXYGEN AT 2LPM VIA NC, WITH NO ACUTE RESPIRATORY DISTRESS NOTED. DENIES OF PAIN. PIV TO RIGHT HAND, FLUSHED WITH NS, INTACT AND OPERATIONAL. PT DENIES ANY CONCERNS AND QUESTIONS AT THIS MOMENT. PT STATED HE'S NOT TAKING CERTAIN MEDICATIONS LIKE GABAPENTIN, AND MEDICATIONS THAT WAS BROUGHT BY MOTHER FROM HOME, ETC. PT'S BED KEPT IN LOWEST LOCKED POSITION. WILL CONTINUE PLAN OF CARE.
[2019-02-26] MEDS: PANTOPRAZOLE 40 MG TABLET.DR PO SCH (07:51)
[2019-02-26 08:00] VITALS: BP 98/50
[2019-02-26] MEDS: MULTIVIT W/MINERALS 1 TAB TABLET PO SCH (08:43)
[2019-02-26] MEDS: FUROSEMIDE 20 MG/2 ML VIAL IV SCH (08:44)
[2019-02-26] MEDS: methylPREDNISolone SOD SUCC 125 MG/2ML VIAL IV SCH ×3 (08:44→17:01)
[2019-02-26] MEDS: FLUTICASONE/VILANTEROL 1 EACH BLST.W.DEV IH SCH (08:51)
[2019-02-26 09:31] LABS: BAND % (MANUAL) 2 % (0.0-5.0); LYMPHOCYTES % (MANUAL) 9 % (16-48); MONOCYTES % (MANUAL) 6 % (0-11.0); NEUTROPHILS % (MANUAL) 83 (42-76)
--- NOTE | 2019-02-26 10:41 | NUR ---
MS RN NOTES RECEIVED CALL FROM PHARMACY TO PUT BACTROBAN ORDER FOR PT TO RIGHT NOSTRIL.
[2019-02-26] MEDS: MUPIROCIN OINT 2% 22 GM TUBE SCH ×2 (13:14→21:11)
[2019-02-26] MEDS ORDERED: LORAZEPAM INJ 2 MG/ML VIAL IV PRN (14:00)
[2019-02-26] MEDS ORDERED: SULF1TAB47 PO (15:46)
[2019-02-26 16:00] VITALS: BP 120/70
[2019-02-26] MEDS: GABAPENTIN 300 MG CAPSULE PO SCH (18:00)
--- NOTE | 2019-02-26 19:13 | NUR ---
MS RN CLOSING NOTES PT IN BED, AWAKE AND ALERT. REMAINS ON CONTACT ISOLATION FOR MRSA OF NARES. HOB ELEVATED. ON SUPPLEMENTAL OXYGEN AT 2LPM VIA NC, WITH NO ACUTE RESPIRATORY DISTRESS NOTED. DENIES OF PAIN. PIV TO RIGHT HAND, FLUSHED WITH NS, INTACT AND OPERATIONAL. PT DENIES PAIN OR ANY DISCOMFORT. PT'S BED KEPT IN LOWEST LOCKED POSITION. CALL LIGHT AND FLUID KEPT WITHIN REACH. ENDORSED TO INCOMING NURSE REGARDING HOME MEDICATIONS THAT MOTHER WILL BRING IN TONIGHT AND CORBY.
[2019-02-26 20:00] VITALS: BP 124/79
--- NOTE | 2019-02-26 20:27 | NUR ---
RN OPENING NOTES PATIENT IS AWAKE IN BED. A/O X 3. ON OXYGEN 2L VIA NC. NO S/S OF RESPIRATORY DISTRESS. PATIENT DENIES PAIN AT THIS TIME. PATIENT IV SITE INTACT AND PATENT. SAFETY PRECAUTIONS IMPLEMENTED. CALL LIGHT WITHIN REACH. WILL CONTINUE TO MONITOR PATIENT THROUGHOUT MY SHIFT.
[2019-02-26 23:15] VITALS: BP 124/79
[2019-02-27] MEDS: VANCOMYCIN 1.25 GM in IV D5W 500 ML IV SCH (02:01)
[2019-02-27] MEDS: PIPERACILLIN /TAZOBACTAM 3.375 G in IV D5W 50 ML IV SCH ×2 (05:32→13:01)
--- NOTE | 2019-02-27 06:41 | NUR ---
RN CLOSING NOTES PATIENT IS RESTING IN BED. NO S/S OF RESPIRATORY DISTRESS. NO COMPLAINTS OF SHORTNESS OF BREATH. PATIENT DENIES PAIN AT THIS TIME. ALL NEEDS MET THROUGHOUT MY SHIFT. SAFETY PRECAUTIONS IMPLEMENTED. CALL LIGHT WITHIN REACH. WILL ENDORSE TO AM RN.
--- NOTE | 2019-02-27 07:25 | NUR ---
MS/RN OPENING NOTE THE PATIENT ALERT AND ORIENTED X3. RECEIVING OXYGEN AT 2L/MIN VIA NASAL CANNULA AND DENIES SOB. RESPIRATION REGULAR AND UNLABORED. DENIES PAIN. THE PATIENT IN NO APPARENT DISTRESS. RIGHT HAND G 22 PATENT AND SALINE LOCKED. BED LOW AND LOCKED. SIDE RAILS UP X2. CALL LIGHT WITHIN REACH. WILL CONTINUE TO MONITOR.
[2019-02-27 08:00] VITALS: BP 96/54
[2019-02-27 08:03] LABS: BASOPHILS % (AUTO) 0.2 % (0.0-2.0); HEMATOCRIT 30 % (39-51); HEMOGLOBIN 10.4 g/dL (13.5-17.5); LYMPHOCYTES # (AUTO) 0.4 /CMM (0.8-4.8); LYMPHOCYTES % (AUTO) 9.1 % (20.0-44.0); MEAN CORPUSCULAR HGB CONC 35 g/dl (31.0-36.0); MEAN CORPUSCULAR VOLUME 93 fL (80-96); MONOCYTES # (AUTO) 0.5 /CMM (0.1-1.30); MONOCYTES % (AUTO) 10.6 % (2.0-12.0); NEUTROPHILS # (AUTO) 3.9 /CMM (1.8-8.9); NEUTROPHILS % (AUTO) 80.1 % (43.0-81.0); PLATELET COUNT (AUTO) 147 /CMM (150-450); WHITE BLOOD COUNT (AUTO) 4.8 K/uL (4.3-11.0)
[2019-02-27 08:30] LABS: ALBUMIN 1.8 g/dL (3.4-5.0); BILIRUBIN,DIRECT 0.8 mg/dL (0.0-0.2); BILIRUBIN,TOTAL 1.4 mg/dL (0.2-1.0); CALCIUM, SERUM 8.3 mg/dL (8.5-10.1); CREATININE 0.8 mg/dL (0.6-1.3); MAGNESIUM 2.1 mg/dL (1.8-2.4); PHOSPHORUS 2.5 mg/dL (2.5-4.9); TOTAL PROTEIN, SERUM 7.3 g/dL (6.4-8.2)
[2019-02-27] MEDS: methylPREDNISolone SOD SUCC 125 MG/2ML VIAL IV SCH ×2 (08:33→13:00)
[2019-02-27] MEDS: MULTIVIT W/MINERALS 1 TAB TABLET PO SCH (08:34)
[2019-02-27] MEDS: PANTOPRAZOLE 40 MG TABLET.DR PO SCH (08:34)
[2019-02-27] MEDS: MUPIROCIN OINT 2% 22 GM TUBE SCH (08:37)
[2019-02-27] MEDS: FLUTICASONE/VILANTEROL 1 EACH BLST.W.DEV IH SCH (08:44)
[2019-02-27] MEDS: FUROSEMIDE 20 MG/2 ML VIAL IV SCH (08:46)
[2019-02-27 09:22] LABS: BAND % (MANUAL) 4 % (0.0-5.0); LYMPHOCYTES % (MANUAL) 14 % (16-48); MONOCYTES % (MANUAL) 6 % (0-11.0); NEUTROPHILS % (MANUAL) 76 (42-76)
[2019-02-27] MEDS ORDERED: ALBU8.5H8 INH (09:27)
[2019-02-27] MEDS ORDERED: PRED20TA PO (09:27)
--- NOTE | 2019-02-27 13:30 | NUR ---
MS/RN NOTE THE PATIENT ALERT AND ORIENTED X3. IN ROOM AIR AND SATURATION AT 97%. NO C/O SOB. RESPIRATION REGULAR AND UNLABORED. NO C/O PAIN. DISCHARGE EDUCATION PROVIDED TO THE PATIENT AND HE VERBALIZED UNDERSTANDING. PRESCRIPTIONS GIVEN TO THE PATIENT AND COPIES ARE SAVED IN THE CHART. PATIENT PICK BY MOTHER. PATIENT IN STABLE CONDITION.
== END 2019-02-27 14:15 | disposition home or self-care (01) | DRG 871 ==
LOC: ER 23:49 → TELE 02-24 04:05 → MED 02-25 10:21
PROVIDERS: ADMIT Student in an Organized Health Care Education/Training Program; ATTEND Student in an Organized Health Care Education/Training Program
DX: A41.9 Sepsis, unspecified organism (principal); E43 Unspecified severe protein-calorie malnutrition; J18.9 Pneumonia, unspecified organism; J44.1 Chronic obstructive pulmonary disease with (acute) exacerbation; D61.818 Other pancytopenia; E87.1 Hypo-osmolality and hyponatremia; J44.0 Chronic obstructive pulmonary disease with (acute) lower respiratory infection; K74.60 Unspecified cirrhosis of liver; K72.90 Hepatic failure, unspecified without coma; E88.09 Other disorders of plasma-protein metabolism, not elsewhere classified; I10 Essential (primary) hypertension; Z87.891 Personal history of nicotine dependence; D64.9 Anemia, unspecified; R74.0 Nonspecific elevation of levels of transaminase and lactic acid dehydrogenase [LDH]; E87.6 Hypokalemia; N62 Hypertrophy of breast; M54.5 Low back pain; Z86.19 Personal history of other infectious and parasitic diseases; Z68.31 Body mass index [BMI] 31.0-31.9, adult; R65.20 Severe sepsis without septic shock
CPT/HCPCS: 36415; 71045-TC; 80048-TC; 80053-TC; 80061-TC; 80076-TC; 80202-TC; 80305; 81000-TC; 82140-TC; 83605-TC; 83735-TC; 83880; 84100-TC; 84132-TC; 84443-TC; 84484-TC; 85025-TC; 85730-TC; 87040-TC; 87070-TC; 87081-TC; 87086-TC; 87400; 93307-TC; G0378; G0480; J1940; J2060; J2543; J2930; J3370; J3480; J7030; J7050; J7060; Q9967

== ENCOUNTER 2019-10-07 14:36 | Emergency (ER) | payer OTHER ==
[~2019-10-07] VITALS: Ht 182.9 cm; Wt 129.3 kg
[~2019-10-07 14:36] MED LIST changes: +ALBU8.5H8 INH; +PRED20TA PO; +SULF1TAB47 PO
--- NOTE | 2019-10-07 15:30 | NUR ---
c/o difficulty breathing yesterday, speaks in full sentences at this time. Patient a/ox4, breathing even and unlabored, no sob noted. Attached to the monitor technician. SPO2 97% on room air. Will continue to monitor.
[2019-10-07 17:18] LABS: BASOPHILS % (AUTO) 0.4 % (0.0-2.0); EOSINOPHILS % (AUTO) 2.4 % (0.0-6.0); HEMATOCRIT 39 % (39-51); HEMOGLOBIN 13.2 g/dL (13.5-17.5); LYMPHOCYTES # (AUTO) 0.9 /CMM (0.8-4.8); LYMPHOCYTES % (AUTO) 21.2 % (20.0-44.0); MEAN CORPUSCULAR HGB CONC 34 g/dl (31.0-36.0); MEAN CORPUSCULAR VOLUME 97 fL (80-96); MONOCYTES # (AUTO) 0.4 /CMM (0.1-1.30); MONOCYTES % (AUTO) 10.3 % (2.0-12.0); NEUTROPHILS # (AUTO) 2.8 /CMM (1.8-8.9); NEUTROPHILS % (AUTO) 65.7 % (43.0-81.0); PLATELET COUNT (AUTO) 92 /CMM (150-450); RED BLOOD CELL COUNT(AUTO) 4.02 MIL/uL (4.5-6.0); WHITE BLOOD COUNT (AUTO) 4.3 K/uL (4.3-11.0)
[2019-10-07 17:30] LABS: CALCIUM, SERUM 9.4 mg/dL (8.5-10.1); CREATININE 0.9 mg/dL (0.6-1.3)
[2019-10-07 17:49] LABS: ALBUMIN 2.9 g/dL (3.4-5.0); BILIRUBIN,DIRECT 1.3 mg/dL (0.0-0.2); BILIRUBIN,TOTAL 2.5 mg/dL (0.2-1.0); TOTAL PROTEIN, SERUM 7.9 g/dL (6.4-8.2)
[2019-10-07 18:06] LABS: BAND % (MANUAL) 3 % (0.0-5.0); EOSINOPHILS % (MANUAL) 2 % (0-4); LYMPHOCYTES % (MANUAL) 24 % (16-48); MONOCYTES % (MANUAL) 11 % (0-11.0); NEUTROPHILS % (MANUAL) 60 (42-76)
--- NOTE | 2019-10-07 18:37 | NUR ---
Patient is resting comfortably in bed with eyes closed. Easily aroused. VSS
--- NOTE | 2019-10-07 20:00 | NUR ---
Patient discharged to home in stable condition. Written and verbal after care instructions given. Patient verbalizes understanding of instruction. IV removed. Catheter intact and site benign. Pressure and 4x4 applied to site. No bleeding noted.PT ambulatory with a steady gait.
[2019-10-07 20:11] VITALS: BP 130/77
== END 2019-10-07 20:05 | disposition home or self-care (01) ==
LOC: ER 14:40
DX: K74.60 Unspecified cirrhosis of liver (principal); R06.02 Shortness of breath; E66.9 Obesity, unspecified; Z68.38 Body mass index [BMI] 38.0-38.9, adult; Z86.19 Personal history of other infectious and parasitic diseases; Z90.49 Acquired absence of other specified parts of digestive tract; Z79.899 Other long term (current) drug therapy
CPT/HCPCS: 36415; 71045-TC; 80048-TC; 80076-TC; 83880; 84484-TC; 85025-TC

== ENCOUNTER 2020-01-31 13:15 | Emergency (ER) | payer OTHER ==
[~2020-01-31] VITALS: Ht 182.9 cm; Wt 135.2 kg
--- NOTE | 2020-01-31 13:47 | NUR ---
L SHOULDER, L SIDE RIB AREA PAIN, SOB S/P GLF HITTING EDGE OF DECK 2 DAYS AGO. REPORTS PAIN LEVEL 10/10. NO ACUTE DISTRESS NOTED. MADE COMFORTABLE. SEEN BY OLEG BORRERO. AWAITING ORDERS.
[2020-01-31] MEDS ORDERED: IBUPROFEN 400 MG TABLET ONE (13:51)
[2020-01-31] MEDS ORDERED: ACETAMINOPHEN 325 MG TABLET ONE (13:51)
[2020-01-31] MEDS ORDERED: ACETAMINOPHEN 325 MG TABLET PO ONE (14:00)
[2020-01-31] MEDS ORDERED: IBUPROFEN 400 MG TABLET PO ONE (14:00)
--- NOTE | 2020-01-31 14:08 | NUR ---
VACATION GUIDE AT BEDSIDE
--- NOTE | 2020-01-31 15:05 | NUR ---
Patient discharged to home in stable condition. Written and verbal after care instructions given. Patient verbalizes understanding of instruction.
--- NOTE | 2020-01-31 15:05 | NUR ---
PT REC'D A COPY OF ALL IMAGING FINDINGS AND AMBULATED OUT WITH A STEADY GAIT.
[2020-01-31 15:16] VITALS: BP 129/84
== END 2020-01-31 15:05 | disposition home or self-care (01) ==
LOC: ER 13:21
DX: S20.212A Contusion of left front wall of thorax, initial encounter (principal); M25.512 Pain in left shoulder; J44.9 Chronic obstructive pulmonary disease, unspecified; Z86.19 Personal history of other infectious and parasitic diseases; Z90.49 Acquired absence of other specified parts of digestive tract; Z79.899 Other long term (current) drug therapy; W01.198A Fall on same level from slipping, tripping and stumbling with subsequent striking against other object, initial encounter; Y93.89 Activity, other specified; Y92.89 Other specified places as the place of occurrence of the external cause; Y99.8 Other external cause status
CPT/HCPCS: 71100-TC; 73030-TC

== ENCOUNTER 2020-06-24 16:02 | Inpatient (IN) | payer OTHER ==
[~2020-06-24] VITALS: Ht 182.9 cm; Wt 147.4 kg
--- NOTE | 2020-06-24 16:15 | NUR ---
BIBS FROM HOME TO ER BED 7. AAOX4. SOB DURING EXERTION AND ACTIVITY. AMBULATORY. CAME IN FOR BLACK STOOL SINCE YESTERDAY. PER PT, IT STARTED LIGHT THEN TODAY IS BLACK. DENIES ABDOMINAL PAIN. DENIES CP. DENIES N/V/D. AWAITING MD FOR EVAL.
--- NOTE | 2020-06-24 16:45 | NUR ---
IV LINE ESTABLISHED ON R AC 18G. BLOOD DRAWN AND GIVEN TO HOSPITAL ACCOUNT LIAISON AT BEDSIDE.
[2020-06-24 16:48] LABS: BASOPHILS % (AUTO) 0.3 % (0.0-2.0); EOSINOPHILS % (AUTO) 0.9 % (0.0-6.0); HEMATOCRIT 36 % (39-51); HEMOGLOBIN 12.4 g/dL (13.5-17.5); LYMPHOCYTES # (AUTO) 0.8 /CMM (0.8-4.8); LYMPHOCYTES % (AUTO) 16.9 % (20.0-44.0); MEAN CORPUSCULAR HGB CONC 34 g/dl (31.0-36.0); MEAN CORPUSCULAR VOLUME 97 fL (80-96); MONOCYTES # (AUTO) 0.4 /CMM (0.1-1.30); MONOCYTES % (AUTO) 8.8 % (2.0-12.0); NEUTROPHILS # (AUTO) 3.5 /CMM (1.8-8.9); NEUTROPHILS % (AUTO) 73.1 % (43.0-81.0); PLATELET COUNT (AUTO) 88 /CMM (150-450); RED BLOOD CELL COUNT(AUTO) 3.71 MIL/uL (4.5-6.0); WHITE BLOOD COUNT (AUTO) 4.8 K/uL (4.3-11.0)
--- NOTE | 2020-06-24 17:00 | NUR ---
MD AT BEDSIDE FOR RECTAL EXAM CHAPERONED BY RN AT BEDSIDE
[2020-06-24 17:03] LABS: ALBUMIN 3.1 g/dL (3.4-5.0); BILIRUBIN,DIRECT 0.8 mg/dL (0.0-0.2); BILIRUBIN,TOTAL 2.2 mg/dL (0.2-1.0); CALCIUM, SERUM 8.8 mg/dL (8.5-10.1); CREATININE 1.2 mg/dL (0.6-1.3); TOTAL PROTEIN, SERUM 7.4 g/dL (6.4-8.2)
[2020-06-24 17:17] LABS: BAND % (MANUAL) 1 % (0.0-5.0); LYMPHOCYTES % (MANUAL) 45 % (16-48); MONOCYTES % (MANUAL) 7 % (0-11.0); NEUTROPHILS % (MANUAL) 47 (42-76)
--- NOTE | 2020-06-24 17:30 | NUR ---
CALLED HOUSE SUP FOR TELE BED.
--- NOTE | 2020-06-24 17:41 | NUR ---
COVID SWAB DONE AND SENT TO LAB
--- NOTE | 2020-06-24 18:04 | NUR ---
ROOM ASSIGNMENT: 312-2 TELE
[2020-06-24] MEDS ORDERED: IV D5/0.45 NACL 1,000 ML IV PRN (18:06)
[2020-06-24] MEDS ORDERED: HYDROCODONE/APAP 5/325MG 1 EACH TABLET PO PRN (18:30)
[2020-06-24] MEDS ORDERED: MAGNESIUM HYDROXIDE 30 ML UDC PO PRN (18:30)
[2020-06-24] MEDS ORDERED: MAG HYDROX/AL HYDROX/SIMETH 30 ML UDC PO PRN (18:30)
[2020-06-24] MEDS ORDERED: ONDANSETRON HCL/PF 4 MG/2 ML VIAL IVP PRN (18:30)
[2020-06-24] MEDS ORDERED: ACETAMINOPHEN 325 MG TABLET PO PRN (18:30)
--- NOTE | 2020-06-24 18:44 | NUR ---
COVID RESULT: NEGATIVE
[2020-06-24] MEDS ORDERED: ALBUTEROL FS 2.5 MG/0.5 ML VIAL.NEB NEB PRN (19:30)
--- NOTE | 2020-06-24 19:41 | NUR ---
REPORT GIVEN TO CHARLES QUESADA FOR CORBY.
[2020-06-24 19:55] VITALS: BP 137/86
--- NOTE | 2020-06-24 19:56 | NUR ---
PT TRANSPORTED TO UNIT ON [facility] WITH EMT AND RN AT BEDSIDE W/ ACLS PROTOCOL. NAD NOTED. PT AMBULATED FROM [facility] TO BED
--- NOTE | 2020-06-24 19:57 | NUR ---
TOE FORMER NOTES RECEIVED PATIENT VIA GURNEY, PT WAS ABLE TO AMBULATE TO BED. A/O X4, PT ORIENTED TO ROOM. ON RA, NO SOB/ ACUTE RESPIRATORY DISTRESS NOTED. IV IN R AC #18G IS PATENT AND INTACT. APPEARS COMFORTABLE/ NO COMPLAINTS OF PAIN AT THE MOMENT. BED IS IN LOWEST LOCKED POSITION WITH SIDE RAILS UP X2, SEMI FOWLERS. CALL LIGHT IS WITHIN REACH. WILL CONTINUE TO MONITOR.
[2020-06-24 20:00] VITALS: BP 137/86
[2020-06-24] MEDS: MORPHINE SULFATE INJ 2 MG/ML DISP.SYRIN IV PRN (22:12)
--- NOTE | 2020-06-24 23:00 | NUR ---
MS RN NOTES VTE SCORE: 3, DVT PUMPS APPLIED & ORDERED
[2020-06-25] VITALS (10 sets, daily range): BP systolic 112–147; BP diastolic 64–91
[2020-06-25] MEDS: MORPHINE SULFATE INJ 2 MG/ML DISP.SYRIN IV PRN ×2 (02:07→06:04)
--- NOTE | 2020-06-25 06:37 | NUR ---
EDGE GRINDER MACHINE CLOSE NOTES PATIENT IS LAYING IN BED. A/O X4. ON RA, NO SOB/ ACUTE RESPIRATORY DISTRESS NOTED. IV IN R AC #18G IS PATENT AND INTACT RUNNING D5 1/2 NS@ 75MLS/HR. APPEARS COMFORTABLE/ NO COMPLAINTS OF PAIN AT THE MOMENT. PATIENT IS AMBULATORY. KEPT NPO FOR EGD SCHEDULED AT 2PM. ALL CONSENTS HAVE BEEN SIGNED. BED IS IN LOWEST LOCKED POSITION WITH SIDE RAILS UP X2, SEMI FOWLERS. CALL LIGHT IS WITHIN REACH. WILL ENDORSE TO AM NURSE.
[2020-06-25 07:00] LABS: BASOPHILS % (AUTO) 0.3 % (0.0-2.0); EOSINOPHILS % (AUTO) 1.8 % (0.0-6.0); HEMATOCRIT 32 % (39-51); HEMOGLOBIN 10.9 g/dL (13.5-17.5); LYMPHOCYTES # (AUTO) 1.5 /CMM (0.8-4.8); LYMPHOCYTES % (AUTO) 30.2 % (20.0-44.0); MEAN CORPUSCULAR HGB CONC 34 g/dl (31.0-36.0); MEAN CORPUSCULAR VOLUME 97 fL (80-96); MONOCYTES # (AUTO) 0.5 /CMM (0.1-1.30); MONOCYTES % (AUTO) 10.2 % (2.0-12.0); NEUTROPHILS # (AUTO) 2.8 /CMM (1.8-8.9); NEUTROPHILS % (AUTO) 57.5 % (43.0-81.0); PLATELET COUNT (AUTO) 81 /CMM (150-450); RED BLOOD CELL COUNT(AUTO) 3.28 MIL/uL (4.5-6.0); WHITE BLOOD COUNT (AUTO) 4.9 K/uL (4.3-11.0)
[2020-06-25 07:17] LABS: ALBUMIN 2.5 g/dL (3.4-5.0); BILIRUBIN,TOTAL 1.8 mg/dL (0.2-1.0); CALCIUM, SERUM 8.2 mg/dL (8.5-10.1); CREATININE 0.8 mg/dL (0.6-1.3); PHOSPHORUS 3.4 mg/dL (2.5-4.9); POTASSIUM 3.6 mmol/L (3.5-5.1); TOTAL PROTEIN, SERUM 6.1 g/dL (6.4-8.2)
[2020-06-25 07:29] LABS: THYROID STIMULATING HORMONE 3.406 uIU/mL (0.358-3.74)
--- NOTE | 2020-06-25 07:30 | NUR ---
TELE/RN NOTE THE PATIENT IS RECEIVED IN BED. THE PATIENT IS ALERT AND ORIENTED X4. IN ROOM AIR AND DENIES SOB. RESPIRATION REGULAR AND UNLABORED. THE PATIENT LORRI PAIN AT THIS TIME. EXTERNAL TELE BOX READING IS SINUS BRADYCARDIA 58. RAC G 18 PATENT AND D5 1/2 NS INFUSING AT 75ML/HR. PATIENT IS NPO EXCEPT MEDS FOR DIAGNOSIS. NO S/S INFILTRATION NOTED. BED LOW AND LOCKED. SIDE RAILS UP X3. CALL LIGHT WITHIN REACH. WILL CONTINUE TO MONITOR.
[2020-06-25] MEDS: MULTIPLE VIT (LYCOPENE/FA/MV,CA,IRON,MIN/LUT)1 TAB PO SCH (08:42)
[2020-06-25] MEDS: SULFAMETH/TRIMETH 800/160 MG 1 UDTAB TABLET PO SCH (08:42)
[2020-06-25] MEDS: SPIRONOLACTONE 25 MG TABLET PO SCH (08:42)
[2020-06-25] MEDS ORDERED: Emtricitabine/Tenofov Alafenam (Descovy 200-25 mg Tablet PO SCH (09:00)
[2020-06-25] MEDS ORDERED: PANTOPRAZOLE 40 MG VIAL IV SCH (09:00)
--- NOTE | 2020-06-25 09:30 | NUR ---
MS/RN NOTE PHARMACY IS MADE AWARE THAT THE PATIENT CANNOT PROVIDE HOME MEDICATIONS DESCOVY 200-25 AND TIVICAY 50 MG (PER PATIENT).
[2020-06-25] MEDS ORDERED: ANESTHESIA TRAY IN PYXIS 1 EA TRAY MC ONE (11:57)
[2020-06-25] MEDS ORDERED: FENTANYL PF 100MCG/2ML AMPUL ONE (12:07)
--- NOTE | 2020-06-25 13:04 | NUR ---
MS/RN NOTE THE PATIENT IS BACK FROM OR. PATIENT IS ALERT AND ORIENTED X4. IN ROOM AIR AND SATURATION IS AT 97%. DENIES PAIN. RESPIRATION REGULAR AND UNLABORED. ABDOMEN SOFT AND NON-DISTENDED. PATIENT IS CONNECTED TO IV FLUID PER ORDER. WILL CONTINUE TO MONITOR.
--- NOTE | 2020-06-25 13:06 | NUR ---
MS/RN NOTE PER DR VINES DIET CHANGES TO REGULAR AND RESUMING PREVIOUS MEDICATION. NOTED AND CARRIED OUT.
--- NOTE | 2020-06-25 14:00 | NUR ---
MS/RN NOTE THE PATIENT TOLERATED REGULAR DIET WELL. NO NAUSEA OR VOMITING. DENIES ANY PAIN/DISCOMFORT. ABDOMEN SOFT AND NON-DISTENDED. WILL CONTINUE TO MONITOR.
[2020-06-25] MEDS: GABAPENTIN 300 MG CAPSULE PO SCH (18:36)
--- NOTE | 2020-06-25 18:37 | NUR ---
MS/RN NOTE TURNER PATRICK IS MADE AWARE THAT THE PATIENT TOLERATES REGULAR DIET WELL AND RECEIVED AN ORDER FROM PHLEBOTOMY TECH TO DISCONTINUE IV FLUID OF D5 1/2 NS THAT IS INFUSING AT 75ML/HR. THE ORDER IS NOTED AND CARRIED OUT.
--- NOTE | 2020-06-25 18:39 | NUR ---
MS/RN NOTE THE PATIENT IS ALERT AND ORIENTED X4. IN ROOM AIR AND OXYGEN SATURATION IS AT 98%. RESPIRATION REGULAR AND UNLABORED. THE PATIENT DENIES PAIN/DISCOMFORT. TOLERATES REGULAR DIET WELL. DENIES NAUSEA/VOMITING. ABDOMEN SOFT AND NON-DISTENDED. RAC G 18 PATENT AND SALINE LOCKED. BED LOW AND LOCKED. SIDE RAILS UP X2. CALL LIGHT WITHIN REACH. WILL ENDORSE TO DIRECTOR OF INSTITUTIONAL RESEARCH.
--- NOTE | 2020-06-25 19:58 | NUR ---
MS RN OPENING NOTES PATIENT RECEIVED RESTING IN BED A/O X 4. STABLE ON RA WITH BREATHING EVENAND UNLABORED, NO SOB NOTED. NO SIGNS OF ACUTE DISTRESS. NO COMPLAINTS OF PAIN OR DISCOMFORT AT THE MOMENT. IV LOCATED ON R AC #18. SAFETY PRECAUTIONS IN PLACE WITH BED IN LOWEST POSITION, CALL LIGHT WITHIN REACH, BREAKS ON, SIDE RAILS UP. WILL CONTINUE TO MONITOR THROUGHOUT THE NIGHT.
[2020-06-26] MEDS: MORPHINE SULFATE INJ 2 MG/ML DISP.SYRIN IV PRN ×2 (02:18→09:19)
--- NOTE | 2020-06-26 06:47 | NUR ---
MS RN CLOSING NOTES PATIENT RESTING IN BED A/O X 4. STABLE ON RA WITH BREATHING EVENAND UNLABORED, NO SOB NOTED. NO SIGNS OF ACUTE DISTRESS. NO COMPLAINTS OF PAIN OR DISCOMFORT AT THE MOMENT. IV LOCATED ON R AC #18. SAFETY PRECAUTIONS IN PLACE WITH BED IN LOWEST POSITION, CALL LIGHT WITHIN REACH, BREAKS ON, SIDE RAILS UP. ALL NEEDS ATTENDED TO. WILL ENDORSE TO ONCOMING SHIFT ABOUT CORBY.
--- NOTE | 2020-06-26 07:30 | NUR ---
RECEIVED PT. IN AM ALERT AND ORIENTED X2.POOR FOLLOW THROUGH.NO COMPLAINTS OFFERED.
[2020-06-26 08:00] VITALS: BP 145/74
[2020-06-26 08:28] LABS: BASOPHILS % (AUTO) 0.5 % (0.0-2.0); HEMATOCRIT 32 % (39-51); HEMOGLOBIN 11.3 g/dL (13.5-17.5); LYMPHOCYTES # (AUTO) 1.3 /CMM (0.8-4.8); LYMPHOCYTES % (AUTO) 25.5 % (20.0-44.0); MEAN CORPUSCULAR HGB CONC 35 g/dl (31.0-36.0); MEAN CORPUSCULAR VOLUME 97 fL (80-96); MONOCYTES # (AUTO) 0.5 /CMM (0.1-1.30); MONOCYTES % (AUTO) 10.5 % (2.0-12.0); NEUTROPHILS # (AUTO) 3.2 /CMM (1.8-8.9); NEUTROPHILS % (AUTO) 61.5 % (43.0-81.0); PLATELET COUNT (AUTO) 96 /CMM (150-450); RED BLOOD CELL COUNT(AUTO) 3.31 MIL/uL (4.5-6.0); WHITE BLOOD COUNT (AUTO) 5.1 K/uL (4.3-11.0)
[2020-06-26 08:32] LABS: CALCIUM, SERUM 7.4 mg/dL (8.5-10.1); CREATININE 0.9 mg/dL (0.6-1.3)
[2020-06-26] MEDS ORDERED: PANTOPRAZOLE 40 MG TABLET.DR PO SCH (08:34)
[2020-06-26] MEDS: SULFAMETH/TRIMETH 800/160 MG 1 UDTAB TABLET PO SCH (09:17)
[2020-06-26] MEDS: SPIRONOLACTONE 25 MG TABLET PO SCH (09:17)
[2020-06-26] MEDS: MULTIPLE VIT (LYCOPENE/FA/MV,CA,IRON,MIN/LUT)1 TAB PO SCH (09:17)
[2020-06-26 10:30] LABS: EOSINOPHILS % (MANUAL) 1 % (0-4); LYMPHOCYTES % (MANUAL) 23 % (16-48); MONOCYTES % (MANUAL) 5 % (0-11.0); NEUTROPHILS % (MANUAL) 71 (42-76)
[2020-06-26] MEDS ORDERED: OMEP20TA20 PO (14:17)
[2020-06-26] MEDS ORDERED: NADO20TA12 PO (14:17)
[2020-06-26 16:00] VITALS: BP 135/62
[2020-06-26] MEDS: GABAPENTIN 300 MG CAPSULE PO SCH (18:38)
--- NOTE | 2020-06-26 19:05 | NUR ---
LESLIE RN INTENSIVE CARE UNIT IN DC ORDER GIVEN.ALL INSTRUCTIONS GIVEN TO PT. HEP LOCK OUT.ALL PAPERS SIGNED AND ESCORTED TO LOBBY FOR DISCHARGE IN W/C.
== END 2020-06-26 19:30 | disposition home or self-care (01) | DRG 432 ==
LOC: ER 16:10 → TELE 18:10 → MED 06-25 10:24
PROVIDERS: ADMIT Nurse Practitioner Acute Care; ATTEND Hospitalist
PROC: 0DJ08ZZ Inspection of Upper Intestinal Tract, Via Natural or Artificial Opening Endoscopic (ICD-10-PCS; principal; 2020-06-25)
DX: K74.60 Unspecified cirrhosis of liver (principal); K25.4 Chronic or unspecified gastric ulcer with hemorrhage; E44.0 Moderate protein-calorie malnutrition; Z68.41 Body mass index [BMI] 40.0-44.9, adult; I85.10 Secondary esophageal varices without bleeding; E66.01 Morbid (severe) obesity due to excess calories; B19.20 Unspecified viral hepatitis C without hepatic coma; Z90.49 Acquired absence of other specified parts of digestive tract; Z79.51 Long term (current) use of inhaled steroids; Z79.899 Other long term (current) drug therapy; R73.9 Hyperglycemia, unspecified; D50.9 Iron deficiency anemia, unspecified; J44.9 Chronic obstructive pulmonary disease, unspecified
CPT/HCPCS: 36415; 80048-TC; 80053-TC; 80061-TC; 80076-TC; 83735-TC; 84100-TC; 84443-TC; 85025-TC; 85730-TC; 86850-TC; 87081-TC; 88305-TC; 88312-TC; 88313-TC; C9113; G0378; J2270; J3010; J3490

== ENCOUNTER 2021-01-26 02:01 | Emergency (ER) | payer OTHER ==
[~2021-01-26] VITALS: Ht 182.9 cm; Wt 147.4 kg
[~2021-01-26 02:01] MED LIST changes: +NADO20TA3 PO; +OMEP20TA20 PO
[2021-01-26 02:04] VITALS: BP 179/100
== END 2021-01-26 02:26 | disposition home or self-care (01) ==
LOC: ER 02:01
DX: K91.841 Postprocedural hemorrhage of a digestive system organ or structure following other procedure (principal); J44.9 Chronic obstructive pulmonary disease, unspecified; Z90.49 Acquired absence of other specified parts of digestive tract; Z79.899 Other long term (current) drug therapy

== ENCOUNTER 2021-09-19 16:50 | Emergency (ER) | payer OTHER ==
[~2021-09-19] VITALS: Ht 182.9 cm; Wt 145.1 kg
--- NOTE | 2021-09-19 16:58 | NUR ---
THE PATIENT BIBS FOR INCREASED FREQUENCY OF URINATION AND THIRST,BLOOD SUGAR 459. IN ROOM AIR AND DENIES SOB. RESPIRATION REGULAR AND UNLABORED. DENIES PAIN. THE PATIENT DENIES HAVING ANY OTHER APPARENT S/S HYPERGLYCEMIA. ATTACHED TO THE MONITOR. WILL CONTINUE TO MONITOR THE PATIENT.
[2021-09-19] MEDS ORDERED: IV NS 0.9% 1,000 ML BAG IV ONE (18:00)
--- NOTE | 2021-09-19 18:00 | NUR ---
STARTED IV LINE, BLOOD SPECIMEN COLLECTED AND SENT TO THE LAB. THE LINE IS SALINE LOCKED.
--- NOTE | 2021-09-19 18:05 | NUR ---
URINE COLLECTED AND SENT TO THE LAB
[2021-09-19 18:16] LABS: BASOPHILS % (AUTO) 0.8 % (0.0-2.0); EOSINOPHILS % (AUTO) 1.9 % (0.0-6.0); HEMATOCRIT 44 % (39-51); HEMOGLOBIN 14.1 g/dL (13.5-17.5); LYMPHOCYTES # (AUTO) 1.1 K/uL (0.8-4.8); LYMPHOCYTES % (AUTO) 26.1 % (20.0-44.0); MEAN CORPUSCULAR HGB CONC 32 g/dl (31.0-36.0); MEAN CORPUSCULAR VOLUME 88 fL (80-96); MONOCYTES # (AUTO) 0.5 K/uL (0.1-1.30); MONOCYTES % (AUTO) 11.4 % (2.0-12.0); NEUTROPHILS # (AUTO) 2.5 K/uL (1.8-8.9); NEUTROPHILS % (AUTO) 59.8 % (43.0-81.0); PLATELET COUNT (AUTO) 98 K/uL (150-450); RED BLOOD CELL COUNT(AUTO) 4.99 MIL/uL (4.5-6.0); WHITE BLOOD COUNT (AUTO) 4.3 K/uL (4.3-11.0)
[2021-09-19 18:28] LABS: CALCIUM, SERUM 8.9 mg/dL (8.5-10.1); CREATININE 1.1 mg/dL (0.6-1.3); POTASSIUM 4.5 mmol/L (3.5-5.1)
[2021-09-19 18:37] LABS: BILIRUBIN,URINE Negative (NEGATIVE); COLOR,URINE YELLOW (YELLOW); LEUKOCYTE ESTERASE ,URINE Negative (NEGATIVE); NITRITE, URINE Negative (NEGATIVE); PH,URINE 6.5 (5.0-8.0); PROTEIN,URINE Negative (NEGATIVE); UGLUCOSE >=1000 mg/dL (NEGATIVE); UROBILINOGEN,URINE 0.2 EU/dL (0.2)
[2021-09-19] MEDS ORDERED: METF-440 PO (18:43)
[2021-09-19 18:53] LABS: BACTERIA,URINE Few /HPF (None Seen); SQUAMOUS EPITHELIAL CELL,UR Few /HPF (None Seen); WBC,URINE 0-2 /HPF (0-3)
[2021-09-19] MEDS ORDERED: INSULIN REGULAR, HUMAN 100 UNIT/ML 10 ML VIAL ONE (18:53)
[2021-09-19] MEDS ORDERED: INSULIN REGULAR, HUMAN 100 UNIT/ML 10 ML VIAL SQ ONE (19:00)
--- NOTE | 2021-09-19 19:07 | NUR ---
IV removed. Catheter intact and site benign. Pressure and 4x4 applied to site. No bleeding noted.
--- NOTE | 2021-09-19 19:09 | NUR ---
Patient discharged to home in stable condition. Written and verbal after care instructions given. Patient verbalizes understanding of instruction.
[2021-09-19 19:10] LABS: LYMPHOCYTES % (MANUAL) 31 % (16-48); MONOCYTES % (MANUAL) 15 % (0-11.0); NEUTROPHILS % (MANUAL) 54 (42-76)
[2021-09-19 19:19] VITALS: BP 135/72
== END 2021-09-19 19:21 | disposition home or self-care (01) ==
LOC: ER 17:05
DX: E11.65 Type 2 diabetes mellitus with hyperglycemia (principal); J45.909 Unspecified asthma, uncomplicated; Z90.49 Acquired absence of other specified parts of digestive tract; Z98.890 Other specified postprocedural states; Z79.899 Other long term (current) drug therapy; Z79.84 Long term (current) use of oral hypoglycemic drugs
CPT/HCPCS: 36415; 80048; 81001; 82962; 85007; 85025; 96360; 96372; 99283; J1815; J7030

== ENCOUNTER 2022-09-28 12:41 | Inpatient (IN) | payer OTHER ==
[~2022-09-28] VITALS: Ht 182.9 cm; Wt 147.4 kg
[~2022-09-28 12:41] MED LIST changes: +METF-440 PO
[2022-09-28] MEDS ORDERED: IV NS 0.9% 1,000 ML BAG IV ONE ×2 (14:00→16:00)
[2022-09-28] MEDS ORDERED: ACETAMINOPHEN ES 500 MG TABLET PO ONE (14:00)
[2022-09-28] MEDS ORDERED: ACETAMINOPHEN ES 500 MG TABLET ONE (14:21)
--- NOTE | 2022-09-28 14:38 | NUR ---
IV LINE ESTABLISHED ON RAC #20, BLOOD DRAWN AND COLLECTED BY PHLEB AT BEDSIDE.
--- NOTE | 2022-09-28 14:40 | NUR ---
TYLENOL PO GIVEN INDICATED, ROSA WELL
[2022-09-28] MEDS ORDERED: LINA5TAB PO (14:42)
[2022-09-28] MEDS ORDERED: METF-881 PO (14:42)
[2022-09-28] MEDS ORDERED: TAMS-12 PO (14:42)
[2022-09-28] MEDS ORDERED: CHOL100043 PO (14:42)
[2022-09-28] MEDS ORDERED: SULF1TAB48 PO (14:42)
[2022-09-28] MEDS ORDERED: BICT1TAB PO (14:42)
[2022-09-28 15:00] LABS: HEMATOCRIT 39 % (39-51); LYMPHOCYTES # (AUTO) 0.4 K/uL (0.8-4.8); LYMPHOCYTES % (AUTO) 2.5 % (20.0-44.0); MEAN CORPUSCULAR HGB CONC 33 g/dl (31.0-36.0); MEAN CORPUSCULAR VOLUME 97 fL (80-96); MONOCYTES # (AUTO) 0.8 K/uL (0.1-1.30); MONOCYTES % (AUTO) 5.6 % (2.0-12.0); NEUTROPHILS % (AUTO) 91.9 % (43.0-81.0); PLATELET COUNT (AUTO) 70 K/uL (150-450); RED BLOOD CELL COUNT(AUTO) 4.04 MIL/uL (4.5-6.0); WHITE BLOOD COUNT (AUTO) 14.1 K/uL (4.3-11.0)
[2022-09-28 15:14] LABS: CALCIUM, SERUM 9.5 mg/dL (8.5-10.1); CARBON DIOXIDE 27 mmol/L (21-32); CHLORIDE 100 mmol/L (98-107); CREATININE 1.9 mg/dL (0.6-1.3); GLUCOSE 161 mg/dL (74-106); POTASSIUM 4.9 mmol/L (3.5-5.1); SODIUM SERUM 134 mmol/L (136-145); UREA NITROGEN, BLOOD 32 mg/dL (7-18)
[2022-09-28 15:19] LABS: ALANINE AMINOTRANSFERASE 56 U/L (12-78); ALBUMIN 2.6 g/dL (3.4-5.0); ALKALINE PHOSPHATASE 96 U/L (46-116); ASPARTATE AMINOTRANSFERASE 134 U/L (15-37); BILIRUBIN,DIRECT 1.1 mg/dL (0.0-0.2); BILIRUBIN,TOTAL 2.3 mg/dL (0.2-1.0)
--- NOTE | 2022-09-28 15:55 | NUR ---
MOVE SHEET SUBMITTED, MD TO MD IN PROGRESS.
[2022-09-28] MEDS ORDERED: DEXTROSE 50%-WATER 50 ML DISP.SYRIN IV PRN (16:00)
[2022-09-28] MEDS ORDERED: MORPHINE SULFATE INJ 2 MG/ML DISP.SYRIN IV PRN (16:00)
[2022-09-28] MEDS ORDERED: ACETAMINOPHEN 325 MG TABLET PO PRN (16:00)
[2022-09-28] MEDS ORDERED: hydrALAZINE HCL IV 20 MG VIAL IV PRN (16:00)
[2022-09-28] MEDS ORDERED: ONDANSETRON HCL/PF 4 MG/2 ML VIAL IVP PRN (16:00)
--- NOTE | 2022-09-28 16:10 | NUR ---
ROOM 326-2
--- NOTE | 2022-09-28 16:15 | NUR ---
PT REPORT GIVEN TO CHARLES CASSIDY
[2022-09-28] MEDS: CEFEPIME 1 GM in IV D5W 50 ML IV ONE ×2 (16:25→17:01)
[2022-09-28] MEDS: VANCOMYCIN 1 GM in IV D5W 250 ML IV ONE ×2 (16:51→17:17)
--- NOTE | 2022-09-28 17:00 | NUR ---
URINE SAMPLE COLLECTED AND SENT TO LAB
[2022-09-28 17:06] LABS: BILIRUBIN,URINE NEGATIVE (NEGATIVE); COLOR,URINE YELLOW (YELLOW); LEUKOCYTE ESTERASE ,URINE NEGATIVE (NEGATIVE); NITRITE, URINE NEGATIVE (NEGATIVE); PROTEIN,URINE TRACE mg/dl (NEGATIVE); UGLUCOSE NEGATIVE (NEGATIVE)
--- NOTE | 2022-09-28 17:07 | NUR ---
MS RN ADMITTING/CLOSING NOTES ADMITTED A 52 Y/O MALE TO UNIT AT 1707 VIA GURNEY WITH DX OF WEAKNESS. PT IS AOX4 AND ABLE TO MAKE NEEDS KNOWN, ORIENTED TO ROOM AND STAFF. V/S TAKEN, STABLE AND RECORDED. PT ON ROOM AIR, TOLERATING WELL. WITH NO ACUUTE RESPIRATORY DISTRESS NOTED. IV ACCESS NOTED ON RIGHT AC G#20, IVF OF NS AT 70 ML/HR RUNNING WITH VANCOMYCIN FROM ER. NO S/SX OF INFILTRATION AT SITE NOTED. LUNGS CLEAR ON AUSCULTATION BILATERALLY. ABDOMEN SOFT, NON-TENDER AND NON-DISTENDED WITH + BOWELS SOUNDS ON FOR QUADRANTS. PHOTOS OF SKIN ISSUES TAKEN AND FILED ON HIS CHART. BELONGINGS ACCOUNTED FOR, MEDICATIONS SENT TO PHARMACY. SAFETY MEASURES IMPLEMENTED: BED PLACED IN LOWEST LOCKED, POSITION WITH SR UP X2. TRAY TABLE AND CALL LIGHT W/IN EASY REACH OF PT. ENDORSED TO CONVEYOR MAINTENANCE MECHANIC.
[2022-09-28 17:11] LABS: BACTERIA,URINE RARE /HPF (None Seen); RBC,URINE 51-80 /HPF (0-2); WBC,URINE 0-2 /HPF (0-3)
[2022-09-28 17:12] LABS: HYALINE CASTS, URINE Few /LPF (None Seen); MUCUS,URINE Few /LPF (None Seen)
--- NOTE | 2022-09-28 17:15 | NUR ---
RN NOTES - CODE STATUS PATIENT MENTIONED HE WANTED TO BE DNR, INFORMED DR ELIZABETH - APPROVED TO CHANGED FULL CODE TO DNR, CO-SIGNED BY CHARLES FRENCH.
[2022-09-28] MEDS: SPIRONOLACTONE 25 MG TABLET PO SCH (17:41)
[2022-09-28] MEDS: TAMSULOSIN 0.4 MG CAP.SR.24H PO SCH (17:42)
[2022-09-28] MEDS: BLOOD SUGAR DIAGNOSTIC 1 EACH STRIP VI SCH ×2 (17:42→21:50)
[2022-09-28] MEDS: IV NS 0.9% 1,000 ML IV SCH (17:42)
[2022-09-28] MEDS: INSULIN REGULAR, HUMAN 100 UNIT/ML 3 ML VIAL SQ PRN (18:07)
--- NOTE | 2022-09-28 19:30 | NUR ---
MS RN OPENING NOTES RECEIVED PATIENT LAYING IN BED. PER RN, PATIENT VERBALIZED HE DID NOT HAVE MUCH SLEEP THESE PAST DAYS. CAN BE AROUSED BY TOUCH AT THIS TIME. A/O X4. BREATHING EVEN AND NON-LABORED ON ROOM AIR. NOT IN APPARENT DISTRESS. NO PAIN OR DISCOMFORT NOTED. HAS RIGHT ANTECUBITAL IV ACCESS #20G WITH NS RUNNING AT 70 ML/HR. NO S/S OF INFILTRATION NOTED. MULTIPLE BRUISES NOTED. SAFETY PRECAUTIONS IN PLACE: BED LOW AND LOCKED, SIDE RAILS UP X3, CALL LIGHT WITHIN REACH. WILL CONTINUE POC.
[2022-09-28 20:00] VITALS: BP 142/59
[2022-09-28 21:20] LABS: BAND % (MANUAL) 11 % (0.0-5.0); LYMPHOCYTES % (MANUAL) 4 % (16-48); MONOCYTES % (MANUAL) 6 % (0-11.0); NEUTROPHILS % (MANUAL) 79 (42-76)
[2022-09-28] MEDS: HEPARIN SODIUM, PORCINE 5000 UNITS/1 ML VIAL SQ SCH (21:43)
[2022-09-28] MEDS: *INSULIN REGULAR(HUMULIN R)HUM 100 UNIT/ML VIAL SQ PRN (21:44)
[2022-09-29] MEDS: CEFEPIME 2 GM in IV D5W 100 ML IV SCH ×2 (04:22→15:48)
[2022-09-29 05:22] VITALS: BP 109/52
--- NOTE | 2022-09-29 06:00 | NUR ---
REAL ESTATE LEGAL SECRETARY NOTES PATIENT C/O HEADACHE AND REQUESTED FOR TYLENOL. ADMINISTERED PRN AND TOLERATED WELL.
[2022-09-29 06:48] LABS: ALBUMIN 2.3 g/dL (3.4-5.0); BILIRUBIN,TOTAL 1.5 mg/dL (0.2-1.0); CALCIUM, SERUM 8.9 mg/dL (8.5-10.1); CREATININE 1.2 mg/dL (0.6-1.3); MAGNESIUM 1.8 mg/dL (1.8-2.4); PHOSPHORUS 2.4 mg/dL (2.5-4.9); POTASSIUM 4.3 mmol/L (3.5-5.1); TOTAL PROTEIN, SERUM 6.2 g/dL (6.4-8.2)
[2022-09-29] MEDS: INSULIN REGULAR, HUMAN 100 UNIT/ML 3 ML VIAL SQ PRN (06:55)
[2022-09-29] MEDS: IV NS 0.9% 1,000 ML IV SCH (06:57)
[2022-09-29 07:04] LABS: EOSINOPHILS % (AUTO) 0.2 % (0.0-6.0); HEMATOCRIT 34 % (39-51); HEMOGLOBIN 11.6 g/dL (13.5-17.5); LYMPHOCYTES # (AUTO) 0.3 K/uL (0.8-4.8); LYMPHOCYTES % (AUTO) 5.7 % (20.0-44.0); MEAN CORPUSCULAR HGB CONC 34 g/dl (31.0-36.0); MEAN CORPUSCULAR VOLUME 97 fL (80-96); MONOCYTES # (AUTO) 0.5 K/uL (0.1-1.30); MONOCYTES % (AUTO) 9.1 % (2.0-12.0); NEUTROPHILS # (AUTO) 4.7 K/uL (1.8-8.9); RED BLOOD CELL COUNT(AUTO) 3.54 MIL/uL (4.5-6.0); WHITE BLOOD COUNT (AUTO) 5.5 K/uL (4.3-11.0)
--- NOTE | 2022-09-29 07:20 | NUR ---
ELECTRIC LIFT TRUCK DRIVER CLOSING NOTES PATIENT LAYING IN BED AWAKE. A/O X4, ABLE TO VERBALIZE NEEDS. ON SUPPLEMENTAL O2 AT 2LPM VIA NASAL CANULA. SATURATING AROUND 92-95%. ON TELE MONITOR READING SINUS RHYTHM AT 76 BPM. STABLE THROUGHOUT THE SHIFT. ALL DUE MEDS GIVEN AND NEEDS ATTENDED. SAFETY PRECAUTIONS MAINTAINED. WILL ENDORSE TO NEXT SHIFT FOR CORBY.
--- NOTE | 2022-09-29 07:20 | NUR ---
MS SOTO OPENING NOTES RECEIVED PATIENT IN BED ASLEEP . EASILY AROUSED BY STIMULI. A/O X4.NO SOB OR CARDIAC DISTRESS NOTED.DENIES PAIN OR DISCOMFORT AT THIS TIME. NOTED WITH RAC #20G PATENT, INTACT AND IV FLUID RUNNING NS @ 70 ML/HR. SAFETY PRECAUTIONS IN PLACE: BED LOW AND LOCKED, SIDE RAILS UP X3, CALL LIGHT WITHIN REACH. WILL MONITOR PT ACCORDINGLY. Addendum: 09/29/22 at 1935 by ANGELI ROTH RN ERROR
[2022-09-29] MEDS: BLOOD SUGAR DIAGNOSTIC 1 EACH STRIP VI SCH ×4 (07:25→22:18)
[2022-09-29 08:00] VITALS: BP 104/54
[2022-09-29 08:03] LABS: PLATELET COUNT (AUTO) 50 K/uL (150-450)
[2022-09-29] MEDS: METFORMIN XR 500 MG TAB.SR.24H PO SCH (08:51)
[2022-09-29] MEDS: CHOLECALCIFEROL 1,000 UNIT TABLET (VIT D3) PO SCH (08:52)
[2022-09-29] MEDS: LINAGLIPTIN 5 MG TABLET PO SCH (08:52)
[2022-09-29] MEDS: SULFAMETH/TRIMETH 800/160 MG 1 UDTAB TABLET PO SCH (08:52)
[2022-09-29] MEDS: SPIRONOLACTONE 25 MG TABLET PO SCH ×2 (08:52→17:14)
[2022-09-29] MEDS: HEPARIN SODIUM, PORCINE 5000 UNITS/1 ML VIAL SQ SCH ×2 (08:54→09:00)
[2022-09-29] MEDS: BIKTARVY PO SCH (09:13)
[2022-09-29 09:37] LABS: THYROID STIMULATING HORMONE 1.169 uIU/mL (0.358-3.74)
[2022-09-29 09:47] LABS: BAND % (MANUAL) 8 % (0.0-5.0); LYMPHOCYTES % (MANUAL) 8 % (16-48); MONOCYTES % (MANUAL) 12 % (0-11.0); NEUTROPHILS % (MANUAL) 72 (42-76)
[2022-09-29] MEDS ORDERED: K PHOS NEUTRAL 250 MG TABLET PO ONE (10:00)
[2022-09-29] MEDS: RIFAXIMIN 550 MG TABLET PO SCH ×2 (12:36→17:14)
[2022-09-29] MEDS: LACTULOSE 10 G/15 ML UDC (PYXIS) PO SCH ×2 (12:36→17:00)
[2022-09-29] MEDS: FERROUS SULFATE (325 MG) 325 MG/TAB TABLET PO SCH ×2 (12:37→17:14)
--- NOTE | 2022-09-29 15:21 | NUR ---
RN NOTES: PATIENT COMPLAINING OF HEADACHE, INFORMED DR NUGENT. ORDERED TYLENOL 650MG FOR PAIN PRN. ORDERS NOTED ANDD CARRIED OUT.
[2022-09-29] MEDS ORDERED: ACETAMINOPHEN 650 MG/20.3 ML UDC NG PRN (15:30)
[2022-09-29] MEDS ORDERED: ACETAMINOPHEN 325 MG TABLET PO PRN (15:30)
[2022-09-29 16:53] VITALS: BP 109/47
[2022-09-29] MEDS ORDERED: VANCOMYCIN 1.5 GM in IV D5W 500ml IV SCH (17:00)
[2022-09-29] MEDS: TAMSULOSIN 0.4 MG CAP.SR.24H PO SCH (17:13)
[2022-09-29] MEDS: VANCOMYCIN 1.25 GM in IV D5W 250 ML IV SCH (17:15)
--- NOTE | 2022-09-29 19:10 | NUR ---
TRUST MANAGER CLOSING NOTES PATIENT LAYING IN BED AWAKE. A/O X4, ABLE TO VERBALIZE NEEDS. ON O2 AT 2LPM VIA NASAL CANULA ON AND OFF. ON TELE MONITOR READING SINUS RHYTHM AT 78 BPM. IV ACCESS ON LAC GAUGE 20,PATENT, INTACT AND INFUSING NS 1L @70ML/HR. SAFETY PRECAUTIONS MAINTAINED: BED LOCKED AND IN LOWEST POSITION, SIDE RAILS UP X 2, CALL LIGHT IN EASY REACH FOR HELP. ENDORSED TO NOC SHIFT FOR CORBY.
[2022-09-29 20:00] VITALS: BP 130/69
--- NOTE | 2022-09-29 20:14 | NUR ---
RN OPENING NOTE PATIENT AWAKE IN BED. A/OX4. NO S/S OF DISTRESS, BREATHING WITHOUT DIFFICULTY ON 2L NC. RAC #20 INTACT AND PATENT WITH NS 70ML/HR. TELE READS SR 92. SAFETY MEASURES IN PLACE: BED LOCKED AND AT LOWEST POSITION, RAILS UP X2, CALL ZUNIGA WITHIN REACH. WILL CONTINUE TO MONITOR PATIENT.
[2022-09-30] VITALS: BP 117/67
[2022-09-30 04:00] VITALS: BP 114/51
[2022-09-30] MEDS: CEFEPIME 2 GM in IV D5W 100 ML IV SCH ×2 (04:24→16:21)
[2022-09-30] MEDS: VANCOMYCIN 1.25 GM in IV D5W 250 ML IV SCH ×2 (05:35→17:38)
[2022-09-30] MEDS: INSULIN REGULAR, HUMAN 100 UNIT/ML 3 ML VIAL SQ PRN ×2 (05:37→17:41)
[2022-09-30 06:30] LABS: BASOPHILS % (AUTO) 0.1 % (0.0-2.0); EOSINOPHILS % (AUTO) 1.2 % (0.0-6.0); HEMATOCRIT 35 % (39-51); HEMOGLOBIN 11.8 g/dL (13.5-17.5); LYMPHOCYTES # (AUTO) 0.5 K/uL (0.8-4.8); LYMPHOCYTES % (AUTO) 13.7 % (20.0-44.0); MEAN CORPUSCULAR HGB CONC 34 g/dl (31.0-36.0); MEAN CORPUSCULAR VOLUME 96 fL (80-96); MONOCYTES # (AUTO) 0.4 K/uL (0.1-1.30); MONOCYTES % (AUTO) 11.7 % (2.0-12.0); NEUTROPHILS # (AUTO) 2.5 K/uL (1.8-8.9); NEUTROPHILS % (AUTO) 73.3 % (43.0-81.0); PLATELET COUNT (AUTO) 55 K/uL (150-450); RED BLOOD CELL COUNT(AUTO) 3.64 MIL/uL (4.5-6.0); WHITE BLOOD COUNT (AUTO) 3.4 K/uL (4.3-11.0)
[2022-09-30 06:40] LABS: ALBUMIN 2.3 g/dL (3.4-5.0); BILIRUBIN,DIRECT 0.6 mg/dL (0.0-0.2); CALCIUM, SERUM 8.6 mg/dL (8.5-10.1); POTASSIUM 4.1 mmol/L (3.5-5.1); TOTAL PROTEIN, SERUM 6.2 g/dL (6.4-8.2)
--- NOTE | 2022-09-30 06:46 | NUR ---
RN CLOSING NOTE PATIENT ASLEEP IN BED. A/OX4. NO S/S OF DISTRESS, BREATHING WITHOUT DIFFICULTY ON 2L NC. RAC #20 INTACT AND PATENT W/ NS 70ML/HR. TELE READS SR 78. SAFETY MEASURES IN PLACE: BED LOCKED AND AT LOWEST POSITION, RAILS UP X2, CALL ZUNIGA WITHIN REACH. WILL ENDORSE TO NEXT SHIFT FOR CORBY.
--- NOTE | 2022-09-30 07:45 | NUR ---
OPENER TENDER OPENING NOTE Patient in bed, awake. A/O x 4, able to make needs known. On room air, breathing evenly and unlabored. No SOB or s/s of distress noted. IV access on RAC #20 infusing NS at 70 ml/hr. On tele monitoring showing SR, HR on the 70's. Patient denies any pain or discomfort at this time. Safety precautions in place: be din low, locked position; siderails up x 2; call light within reach. Will continue to monitor.
[2022-09-30 08:00] VITALS: BP 115/69
[2022-09-30] MEDS: LACTULOSE 10 G/15 ML UDC (PYXIS) PO SCH ×3 (09:00→16:58)
--- NOTE | 2022-09-30 09:00 | NUR ---
RN NOTES PT REFUSED LACTULOSE SCHEDULED FOR 0900. RETURNED MEDICATION TO [facility].
[2022-09-30] MEDS: BLOOD SUGAR DIAGNOSTIC 1 EACH STRIP VI SCH ×4 (09:12→21:24)
[2022-09-30] MEDS: RIFAXIMIN 550 MG TABLET PO SCH ×2 (09:17→16:45)
[2022-09-30] MEDS: SULFAMETH/TRIMETH 800/160 MG 1 UDTAB TABLET PO SCH (09:17)
[2022-09-30] MEDS: BIKTARVY PO SCH (09:17)
[2022-09-30] MEDS: LINAGLIPTIN 5 MG TABLET PO SCH (09:18)
[2022-09-30] MEDS: FERROUS SULFATE (325 MG) 325 MG/TAB TABLET PO SCH ×2 (09:18→16:45)
[2022-09-30] MEDS: SPIRONOLACTONE 25 MG TABLET PO SCH ×2 (09:20→16:46)
[2022-09-30] MEDS: METFORMIN XR 500 MG TAB.SR.24H PO SCH (09:23)
[2022-09-30] MEDS: CHOLECALCIFEROL 1,000 UNIT TABLET (VIT D3) PO SCH (09:34)
--- NOTE | 2022-09-30 11:42 | NUR ---
RN NOTES BLOOD GLUCOSE READING OF 107 SCHEDULED FOR 1200. INSULIN NOT ADMINISTERED PER BLOOD GLUCOSE SLIDING SCALE.
[2022-09-30 12:00] VITALS: BP 135/75
[2022-09-30 16:00] VITALS: BP 86/53
[2022-09-30] MEDS ORDERED: ALPRAZOLAM 0.25 MG TABLET PO PRN (17:00)
[2022-09-30] MEDS: TAMSULOSIN 0.4 MG CAP.SR.24H PO SCH (17:38)
--- NOTE | 2022-09-30 18:47 | NUR ---
CULINARY SPECIALIST CLOSING NOTE PT IN BED, AWAKE AT THIS TIME. A/O X4 AND ABLE TO MAKE NEEDS KNOWN. STABLE ON RA WITH NO S/S OF SOB. O2 2LPM PRN TOLERATED WELL. IV ACCESS RAC #20 RUNNING NS @ 70 ML/HR. PT ASKING FOR SLEEPING PILLS AND IV ACCESS ISSUES. ENDORSED TO MULTIPLE PUNCH PRESS OPERATOR NURSE. ALL CARE PROVIDED AND PRESCRIBED MEDICATIONS TOLERATED WELL. SAFETY PRECAUTIONS MAINTAINED: BED IN LOW AND LOCKED POSITION; SIDE RAILS UP X2; CALL LIGHT WITHIN REACH. WILL ENDORSE CORBY TO MULTIPLE PUNCH PRESS OPERATOR NURSE.
[2022-09-30 18:56] LABS: BAND % (MANUAL) 10 % (0.0-5.0); BASOPHILS % (MANUAL) 0 % (0.0-2.0); EOSINOPHILS % (MANUAL) 1 % (0-4); LYMPHOCYTES % (MANUAL) 15 % (16-48); MONOCYTES % (MANUAL) 10 % (0-11.0); NEUTROPHILS % (MANUAL) 64 (42-76)
--- NOTE | 2022-09-30 19:10 | NUR ---
MS RN OPENING NOTE RECEIVED PATIENT IN BED, AWAKE AND A/O X 4. IV ACCESS IS AT RIGHT WRIST,20G, FLUSHED WITH 10 CC NS; PATENT AND INTACT. PATIENT IS ON RA, BREATHING EVENLY. NO S/S OF SOB OR DISTRESS. PATIENT DENIES OF HAVING PAIN OR DISCOMFORT. MULTIPLE BRUISES NOTED ON HIS ARMS AND HANDS. SAFETY PRECAUTION IN PLACE: BED IN LOWEST POSITION, LOCKED; SIDE RAILS UP X 2, TABLE AND CALL LIGHT ARE IN REACH. WILL CONTINUE MONITOR PATIENT'S CONDITION.
[2022-09-30 20:00] VITALS: BP 138/65
--- NOTE | 2022-09-30 21:25 | NUR ---
MS RN NOTES PATIENT HS ACCU CHECK, BS IS 130. PER SLIDING SCALE, NO COVERAGE.
[2022-10-01] MEDS: CEFEPIME 2 GM in IV D5W 100 ML IV SCH ×2 (03:08→17:41)
[2022-10-01] MEDS: VANCOMYCIN 1.25 GM in IV D5W 250 ML IV SCH ×2 (05:34→18:34)
[2022-10-01 06:37] LABS: BASOPHILS % (AUTO) 0.3 % (0.0-2.0); EOSINOPHILS % (AUTO) 1.3 % (0.0-6.0); HEMATOCRIT 37 % (39-51); HEMOGLOBIN 12.5 g/dL (13.5-17.5); LYMPHOCYTES # (AUTO) 0.8 K/uL (0.8-4.8); LYMPHOCYTES % (AUTO) 21.9 % (20.0-44.0); MEAN CORPUSCULAR HGB CONC 34 g/dl (31.0-36.0); MEAN CORPUSCULAR VOLUME 96 fL (80-96); MONOCYTES # (AUTO) 0.5 K/uL (0.1-1.30); MONOCYTES % (AUTO) 13.1 % (2.0-12.0); NEUTROPHILS # (AUTO) 2.3 K/uL (1.8-8.9); NEUTROPHILS % (AUTO) 63.4 % (43.0-81.0); PLATELET COUNT (AUTO) 71 K/uL (150-450); RED BLOOD CELL COUNT(AUTO) 3.83 MIL/uL (4.5-6.0); WHITE BLOOD COUNT (AUTO) 3.6 K/uL (4.3-11.0)
[2022-10-01] MEDS: BLOOD SUGAR DIAGNOSTIC 1 EACH STRIP VI SCH ×4 (06:43→22:12)
[2022-10-01 06:47] LABS: ALBUMIN 2.5 g/dL (3.4-5.0); BILIRUBIN,DIRECT 0.6 mg/dL (0.0-0.2); BILIRUBIN,TOTAL 1.2 mg/dL (0.2-1.0); CALCIUM, SERUM 9.3 mg/dL (8.5-10.1); CREATININE 0.9 mg/dL (0.6-1.3); POTASSIUM 4.3 mmol/L (3.5-5.1); TOTAL PROTEIN, SERUM 6.8 g/dL (6.4-8.2)
[2022-10-01] MEDS: INSULIN REGULAR, HUMAN 100 UNIT/ML 3 ML VIAL SQ PRN ×3 (06:52→17:45)
--- NOTE | 2022-10-01 07:16 | NUR ---
MS RN OPENING NOTE PT IN BED, AWAKE. A/O X4 AND ABLE TO MAKE NEEDS KNOWN. ON RA WITH NO S/S OF SOB OR DISTRESS. IV ACCESS RIGHT WRIST #20G, PATENT AND INTACT. PT COMPLAINS THAT THE XANAX HE TOOK LAST NIGHT DID NOT WORK FOR HIM. DR BERNAL INFORMED. SAFETY PRECAUTIONS IN PLACE: BED LOCKED AND IN LOW POSITION; SIDE RAILS UP X2; CALL LIGHT AND TRAY TABLE WITHIN REACH. WILL CONTINUE TO MONITOR AND ASSIST.
--- NOTE | 2022-10-01 07:46 | NUR ---
MS RN CLOSING NOTE PATIENT IS IN BED,SLEEPING. IV ACCESS IS AT RIGHT WRIST,20G, FLUSHED WITH 10 CC NS, PATENT AND INTACT. PATIENT IS ON RA, BREATHING EVENLY. NO S/S OF SOB OR DISTRESS. PATIENT HAS NO S/S OF HAVING PAIN OR DISCOMFORT. MULTIPLE BRUISES ON HIS ARMS AND HANDS. SAFETY PRECAUTION IN PLACE: BED IN LOWEST POSITION, LOCKED; SIDE RAILS UP X 2, CALL LIGHT IN REACH. WILL ENDORSE NEXT SHIFT NURSE FOR CONTINUING PATIENT CARE.
[2022-10-01 08:00] VITALS: BP 119/69
[2022-10-01] MEDS: FERROUS SULFATE (325 MG) 325 MG/TAB TABLET PO SCH ×2 (08:15→17:47)
[2022-10-01] MEDS: SULFAMETH/TRIMETH 800/160 MG 1 UDTAB TABLET PO SCH (08:15)
[2022-10-01] MEDS: LINAGLIPTIN 5 MG TABLET PO SCH (08:15)
[2022-10-01] MEDS: CHOLECALCIFEROL 1,000 UNIT TABLET (VIT D3) PO SCH (08:15)
[2022-10-01] MEDS: RIFAXIMIN 550 MG TABLET PO SCH ×2 (08:15→17:47)
[2022-10-01] MEDS: METFORMIN XR 500 MG TAB.SR.24H PO SCH (08:16)
[2022-10-01] MEDS: SPIRONOLACTONE 25 MG TABLET PO SCH ×2 (08:16→17:47)
[2022-10-01] MEDS: BIKTARVY PO SCH (08:16)
[2022-10-01] MEDS: LACTULOSE 10 G/15 ML UDC (PYXIS) PO SCH ×2 (08:17→17:00)
[2022-10-01 16:00] VITALS: BP 132/75
[2022-10-01 16:38] LABS: BAND % (MANUAL) 13 % (0.0-5.0); BASOPHILS % (MANUAL) 0 % (0.0-2.0); EOSINOPHILS % (MANUAL) 0 % (0-4); LYMPHOCYTES % (MANUAL) 19 % (16-48); MONOCYTES % (MANUAL) 9 % (0-11.0); NEUTROPHILS % (MANUAL) 59 (42-76)
[2022-10-01] MEDS: TAMSULOSIN 0.4 MG CAP.SR.24H PO SCH (17:47)
--- NOTE | 2022-10-01 19:03 | NUR ---
MS RN CLOSING NOTE PT IN BED, AWAKE AT THIS TIME. A/O X4 AND ABLE TO MAKE NEEDS KNOWN. STABLE ON RA WITH NO S/S OF SOB OR DISTRESS. IV NEL #20G PATENT AND INTACT. ALL CARE PROVIDED AND ADMINISTERED MEDICATIONS TOLERATED WELL. SAFETY PRECAUTIONS IN PLACE: BED LOCKED AND IN LOW POSITION; SIDE RAILS UP X2; CALL LIGHT AND TRAY TABLE WITHIN REACH. WILL ENDORSE CORBY TO LOTUS NOTES DEVELOPER NURSE.
--- NOTE | 2022-10-01 19:15 | NUR ---
MS RN OPENING NOTE RECEIVED PATIENT IN BED, AWAKE AND ALERT, A/O X 4. IV ACCESS IS AT LEFT UPPER ARM, #20G, RUNNING WITH IVPB. IV SITE IS CLEAN, PATENT AND INTACT. PATIENT IS ON RA, BREATHING EVENLY. NO S/S OF SOB OR DISTRESS. PATIENT DENIES OF HAVING PAIN OR DISCOMFORT. MULTIPLE BRUISES NOTED ON HIS ARMS AND HANDS. SAFETY PRECAUTION IN PLACE: BED IN LOWEST POSITION, LOCKED; SIDE RAILS UP X 2, TABLE AND CALL LIGHT ARE IN REACH. WILL CONTINUE MONITOR PATIENT'S CONDITION AND PROVIDE PATIENT CARE NEEDED.
[2022-10-01 20:00] VITALS: BP 121/74
[2022-10-01] MEDS: QUETIAPINE FUMARATE 25 MG TABLET PO PRN (21:30)
[2022-10-01] MEDS: *INSULIN REGULAR(HUMULIN R)HUM 100 UNIT/ML VIAL SQ PRN (21:34)
[2022-10-02] VITALS: BP 109/61
[2022-10-02] MEDS: CEFEPIME 2 GM in IV D5W 100 ML IV SCH ×3 (03:16→16:02)
--- NOTE | 2022-10-02 03:54 | NUR ---
MS RN NOTE PATIENT'S IV SITE ARE NOT WORKING. TRY TO INSERT NEW ONE FOR PATIENT, PATIENT REFUSED. EDUCATED PATIENT THAT HE HAS TWO IV ANTIBIOTICS NEED TO BE GIVEN, AND THE IMPORTANCE OF CONTINUING THE ANTIBIOTIC TREATMENT ON SCHEDULE, PATIENT STILL REFUSED. CHARGE NURSE, KATIANA, NOTIFIED. WILL ENDORSE THE DAY SHIFT NURSE TO REQUEST A MIDLINE FOR THE PATIENT.
[2022-10-02 04:00] VITALS: BP 109/56
[2022-10-02] MEDS: VANCOMYCIN 1.25 GM in IV D5W 250 ML IV SCH ×2 (05:00→17:11)
--- NOTE | 2022-10-02 05:02 | NUR ---
PATIENT REFUSED BEING INSERTED A NEW IV ACCESS. EXPLAINED TO THE PATIENT THE IMPORTANCE OF CONTINUING TAKING THE ANTIBIOTIC MEDICATIONS, PATIENT STILL REFUSED THE MEDICATION. CHARGE NURSE KATIANA NOTIFIED. WILL ENDORSE DAY SHIFT NURSE TO REQUEST A MIDLINE FOR THIS PATIENT.
--- NOTE | 2022-10-02 06:00 | NUR ---
MS RN NOTE PATIENT REFUSED MORNING LAB DRAW. EDUCATED THE PATIENT, BUT PATIENT STILL REFUSED. PATIENT SAYS IT IS TOO PAINFUL.
[2022-10-02] MEDS: BLOOD SUGAR DIAGNOSTIC 1 EACH STRIP VI SCH ×4 (06:44→21:40)
[2022-10-02 06:48] LABS: ALBUMIN 2.5 g/dL (3.4-5.0); BILIRUBIN,DIRECT 0.7 mg/dL (0.0-0.2); BILIRUBIN,TOTAL 1.3 mg/dL (0.2-1.0); CALCIUM, SERUM 9.8 mg/dL (8.5-10.1); CREATININE 0.9 mg/dL (0.6-1.3); POTASSIUM 4.2 mmol/L (3.5-5.1)
--- NOTE | 2022-10-02 07:27 | NUR ---
MS RN OPENING NOTE RECEIVED PT IN BED, AWAKE. A/O X4 AND ABLE TO MAKE NEEDS KNOWN. ON RA WITH NO S/S OF SOB OR DISTRESS. NO IV ACCESS AT THIS TIME , PER NIGHT NURSE TRIED TO INSERT BUT UNSUCCESSFUL . NO C/O OF PAIN AND DISCO,MFORT SAFETY PRECAUTIONS IN PLACE: BED LOCKED AND IN LOW POSITION; SIDE RAILS UP X2; CALL LIGHT AND TRAY TABLE WITHIN REACH. WILL CONTINUE TO MONITOR AND ASSIST.
--- NOTE | 2022-10-02 07:32 | NUR ---
MS RN CLOSING NOTE PATIENT IS IN BED,SLEEPING. IV ACCESS HAS BEEN REMOVED DUE TO BEING OCCLUDED OR INFILTRATED. PATIENT REFUSES TO GET A NEW IV ACCESS. PATIENT IS ON RA, BREATHING EVENLY. NO S/S OF SOB OR DISTRESS. PATIENT HAS NO S/S OF HAVING PAIN OR DISCOMFORT. MULTIPLE BRUISES ON HIS ARMS AND HANDS. SAFETY PRECAUTION IN PLACE: BED IN LOWEST POSITION, LOCKED; SIDE RAILS UP X 2, CALL LIGHT IN REACH. WILL ENDORSE DAY SHIFT NURSE FOR CONTINUING PATIENT CARE AND REQUEST A MIDLINE FOR THIS PATIENT.
[2022-10-02 08:00] VITALS: BP 126/69
[2022-10-02] MEDS: LACTULOSE 10 G/15 ML UDC (PYXIS) PO SCH ×3 (09:00→16:43)
[2022-10-02] MEDS: CHOLECALCIFEROL 1,000 UNIT TABLET (VIT D3) PO SCH (09:07)
[2022-10-02] MEDS: RIFAXIMIN 550 MG TABLET PO SCH ×2 (09:08→16:40)
[2022-10-02] MEDS: SULFAMETH/TRIMETH 800/160 MG 1 UDTAB TABLET PO SCH (09:08)
[2022-10-02] MEDS: SPIRONOLACTONE 25 MG TABLET PO SCH ×2 (09:08→16:42)
[2022-10-02] MEDS: METFORMIN XR 500 MG TAB.SR.24H PO SCH (09:08)
[2022-10-02] MEDS: LINAGLIPTIN 5 MG TABLET PO SCH (09:08)
[2022-10-02] MEDS: FERROUS SULFATE (325 MG) 325 MG/TAB TABLET PO SCH ×2 (09:08→16:42)
[2022-10-02] MEDS: BIKTARVY PO SCH (09:20)
--- NOTE | 2022-10-02 09:33 | NUR ---
RN NOTES PATIENT WITH NEW ORDER OF MIDLINE , REFUSED FOR PHERIPHERAL LINE , WITH NEW JENNA MIDLINE G18 , NO BLEEDING , NO SWELLING NOTED
--- NOTE | 2022-10-02 09:36 | NUR ---
RN NOTES REFUSED LACTULOSE MEDCATIONS OFFERED 3X
[2022-10-02 09:54] LABS: BASOPHILS % (AUTO) 0.7 % (0.0-2.0); EOSINOPHILS % (AUTO) 2.6 % (0.0-6.0); HEMATOCRIT 38 % (39-51); HEMOGLOBIN 12.9 g/dL (13.5-17.5); LYMPHOCYTES % (AUTO) 23.4 % (20.0-44.0); MEAN CORPUSCULAR HGB CONC 34 g/dl (31.0-36.0); MEAN CORPUSCULAR VOLUME 97 fL (80-96); MONOCYTES # (AUTO) 0.6 K/uL (0.1-1.30); MONOCYTES % (AUTO) 14.8 % (2.0-12.0); NEUTROPHILS # (AUTO) 2.4 K/uL (1.8-8.9); NEUTROPHILS % (AUTO) 58.5 % (43.0-81.0); PLATELET COUNT (AUTO) 69 K/uL (150-450); RED BLOOD CELL COUNT(AUTO) 3.92 MIL/uL (4.5-6.0); WHITE BLOOD COUNT (AUTO) 4.1 K/uL (4.3-11.0)
[2022-10-02 16:00] VITALS: BP 128/59
[2022-10-02] MEDS: TAMSULOSIN 0.4 MG CAP.SR.24H PO SCH (17:11)
[2022-10-02] MEDS: *INSULIN REGULAR(HUMULIN R)HUM 100 UNIT/ML VIAL SQ PRN (17:35)
--- NOTE | 2022-10-02 18:47 | NUR ---
MS RN CLOSING NOTE PATIENT IN BED AWAKE , A/O X4 . PATIENT IS ON RA, BREATHING EVENLY. NO S/S OF SOB OR DISTRESS. PATIENT HAS NO S/S OF HAVING PAIN OR DISCOMFORT. MULTIPLE BRUISES ON HIS ARMS AND HANDS. JENNA MIDLINE INSERTED AND PATENT AND INTACT , IV ATB ORDERED AND ALL DUE MEDS ORDERED GIVEN , SAFETY PRECAUTION IN PLACE: BED IN LOWEST POSITION, LOCKED; SIDE RAILS UP X 2, CALL LIGHT IN REACH. WILL ENDORSE DAY SHIFT .
--- NOTE | 2022-10-02 19:57 | NUR ---
MS RN OPENING NOTE RECEIVED PT IN BED, AWAKE. A/O X4 AND ABLE TO MAKE NEEDS KNOWN. ON RA WITH NO S/S OF SOB OR DISTRESS. IV ACCESS ON JENNA MIDLINE 18G SL PATENT AND INTACT, NO COMPLAIN FOR PAIN/DISCOMFORT AT THIS TIME, SAFETY PRECAUTIONS IN PLACE: BED LOCKED AND IN LOW POSITION; SIDE RAILS UP X2; CALL LIGHT AND TRAY TABLE WITHIN REACH. WILL CONTINUE TO MONITOR.
[2022-10-02 20:00] VITALS: BP 120/69
[2022-10-02] MEDS: QUETIAPINE FUMARATE 25 MG TABLET PO PRN (23:57)
[2022-10-03 05:04] LABS: BAND % (MANUAL) 1 % (0.0-5.0); LYMPHOCYTES % (MANUAL) 15 % (16-48); METAMYELOCYTES % 1 % (0-0); MONOCYTES % (MANUAL) 12 % (0-11.0); NEUTROPHILS % (MANUAL) 68 (42-76)
[2022-10-03 06:17] LABS: BASOPHILS % (AUTO) 0.3 % (0.0-2.0); EOSINOPHILS % (AUTO) 3.1 % (0.0-6.0); HEMATOCRIT 38 % (39-51); HEMOGLOBIN 13.1 g/dL (13.5-17.5); LYMPHOCYTES % (AUTO) 26.2 % (20.0-44.0); MEAN CORPUSCULAR HGB CONC 34 g/dl (31.0-36.0); MEAN CORPUSCULAR VOLUME 96 fL (80-96); MONOCYTES # (AUTO) 0.6 K/uL (0.1-1.30); MONOCYTES % (AUTO) 16.9 % (2.0-12.0); NEUTROPHILS % (AUTO) 53.5 % (43.0-81.0); PLATELET COUNT (AUTO) 65 K/uL (150-450); RED BLOOD CELL COUNT(AUTO) 3.96 MIL/uL (4.5-6.0); WHITE BLOOD COUNT (AUTO) 3.8 K/uL (4.3-11.0)
--- NOTE | 2022-10-03 06:23 | NUR ---
MS RN CLOSING NORTES; PT IN BED, AWAKE. A/O X4 AND ABLE TO MAKE NEEDS KNOWN. ON RA WITH NO S/S OF SOB OR DISTRESS,IV ACCESS ON JENNA MIDLINE 18G SL PATENT AND INTACT, NO COMPLAIN FOR PAIN/DISCOMFORT DURING SHIFT,DUE MEDS GIVEN ORDER,ALL NEEDS ATTENDED, SAFETY PRECAUTIONS IN PLACE: BED LOCKED AND IN LOW POSITION; SIDE RAILS UP X2; CALL LIGHT AND TRAY TABLE WITHIN REACH. WILL ENDORSED TO MONITOR.
[2022-10-03 06:49] LABS: ALBUMIN 2.4 g/dL (3.4-5.0); BILIRUBIN,DIRECT 0.7 mg/dL (0.0-0.2); BILIRUBIN,TOTAL 1.5 mg/dL (0.2-1.0)
[2022-10-03] MEDS: BLOOD SUGAR DIAGNOSTIC 1 EACH STRIP VI SCH ×2 (07:26→12:46)
--- NOTE | 2022-10-03 07:30 | NUR ---
RN OPENING NOTE RECEIVED PATIENT IN BED ASLEEP, EASILY AROUSED. NO SIGNS OF DISTRESS NOTED. STABLE ON ROOM AIR, NO SOB NOTED, BREATHING EVEN AND UNLABORED. DENIES ANY PAIN AT THIS TIME. NOTED WITH RIGHT UPPER ARM MIDLINE #18G, INTACT AND PATENT, SALINE LOCKED. SAFETY MEASURE IN PLACE. BED IN LOWEST AND LOCKED POSITION, SIDE RAILS UP X2, CALL LIGHT PLACED WITHIN EASY REACH. WILL CONTINUE TO MONITOR PATIENT.
[2022-10-03] MEDS ORDERED: QUET25TA PO (08:00)
[2022-10-03] MEDS: LINAGLIPTIN 5 MG TABLET PO SCH (08:32)
[2022-10-03] MEDS: METFORMIN XR 500 MG TAB.SR.24H PO SCH (08:33)
[2022-10-03] MEDS: SPIRONOLACTONE 25 MG TABLET PO SCH (08:33)
[2022-10-03] MEDS: RIFAXIMIN 550 MG TABLET PO SCH (08:33)
[2022-10-03] MEDS: FERROUS SULFATE (325 MG) 325 MG/TAB TABLET PO SCH (08:33)
[2022-10-03] MEDS: SULFAMETH/TRIMETH 800/160 MG 1 UDTAB TABLET PO SCH (08:33)
[2022-10-03] MEDS: CHOLECALCIFEROL 1,000 UNIT TABLET (VIT D3) PO SCH (08:34)
[2022-10-03] MEDS: LACTULOSE 10 G/15 ML UDC (PYXIS) PO SCH (08:34)
[2022-10-03] MEDS: BIKTARVY PO SCH (08:38)
[2022-10-03 12:14] LABS: BAND % (MANUAL) 6 % (0.0-5.0); LYMPHOCYTES % (MANUAL) 20 % (16-48); MONOCYTES % (MANUAL) 20 % (0-11.0); NEUTROPHILS % (MANUAL) 48 (42-76)
[2022-10-03 12:15] LABS: EOSINOPHILS % (MANUAL) 3 % (0-4)
--- NOTE | 2022-10-03 12:25 | NUR ---
DIRECTOR TRANSITION NOTE PATIENT DISCHARGED HOME IN STABLE CONDITION. PATIENT REMAINS A/O X4, VERBALLY RESPONSIVE. NO SIGNS OF ACUTE DISTRESS NOTED. STABLE ON ROOM AIR. NO C/O PAIN OR DISCOMFORT. ALL BELONGINGS ACCOUNTED FOR, FORM SIGNED BY PATIENT. PHOTOS OF SKIN ISSUES TAKEN, PLACED IN CHART. EXIT CARE FOLDER GIVEN TO PATIENT, HEALTH TEACHINGS AND DISCHARGE INSTRUCTIONS PROVIDED, WITH VERBALIZATION OF UNDERSTANDING. IV ACCESS RIGHT UPPER ARM MIDLINE REMOVED, NO BLEEDING NOTED, PRESSURE DRESSING APPLIED TO SITE. ARM NAME BAND REMOVED. PATIENT LEFT UNIT @1215, ASSISTED TO THE LOBBY VIA W/C. PICKED UP BY MOTHER CHANDAN VIA PRIVATE CAR. CN AWARE OF DISCHARGE.
[2022-10-04 08:07] LABS: *BASOS 1 % (Not Estab.); *COMMENTS Note: (.); *EOS 2 % (Not Estab.); *EOS, ABSOLUTE 0.1 x10E3/uL (0.0-0.4); *HCT 40.2 % (37.5-51.0); *HGB 13.7 g/dL (13.0-17.7); *IMMATURE GRANULOCYTES 1 % (Not Estab.); *LYMPHOCYTES 24 % (Not Estab.); *LYMPHS, ABSOLUTE 1.1 x10E3/uL (0.7-3.1); *MCH 32.5 pg (26.6-33.0); *MCHC 34.1 g/dL (31.5-35.7); *MCV 95 fL (79-97); *MONOCYTES 13 % (Not Estab.); *MONOS, ABSOLUTE 0.6 x10E3/uL (0.1-0.9); *NEUTROPHILS 59 % (Not Estab.); *NEUTROPHILS, ABSOLUTE 2.7 x10E3/uL (1.4-7.0); *PLT 79 x10E3/uL (150-450); *RBC 4.22 x10E6/uL (4.14-5.80); *RDW 14.5 % (11.6-15.4)
[2022-10-04 11:06] LABS: *% CD 4 POS. LYMPH 15.3 % (30.8-58.5); *% CD 8 POS. LYMPH 72.8 % (12.0-35.5); *ABSOLUTE CD 4 HELPER 168 /uL (359-1519); *ABSOLUTE CD 8 SUPPRESSOR 801 /uL (109-897); *CD4/CD8 RATIO 0.21 (0.92-3.72)
== END 2022-10-03 13:00 | disposition home or self-care (01) | DRG 977 ==
LOC: ER 14:09 → MED 16:21 → TELE 09-29 07:41 → MED 09-30 13:28
PROVIDERS: ADMIT Internal Medicine; ATTEND Nurse Practitioner Acute Care
PROC: 05HD33Z Insertion of Infusion Device into Right Cephalic Vein, Percutaneous Approach (ICD-10-PCS; principal; 2022-10-02)
DX: E86.0 Dehydration (principal); B20 Human immunodeficiency virus [HIV] disease; N17.0 Acute kidney failure with tubular necrosis; I85.10 Secondary esophageal varices without bleeding; E72.20 Disorder of urea cycle metabolism, unspecified; Q85.9 Phakomatosis, unspecified; Z68.41 Body mass index [BMI] 40.0-44.9, adult; E44.0 Moderate protein-calorie malnutrition; E87.20 Acidosis, unspecified; E87.1 Hypo-osmolality and hyponatremia; K74.60 Unspecified cirrhosis of liver; D69.6 Thrombocytopenia, unspecified; Z20.822 Contact with and (suspected) exposure to COVID-19; Z66 Do not resuscitate; J44.9 Chronic obstructive pulmonary disease, unspecified; Z90.49 Acquired absence of other specified parts of digestive tract; Z79.84 Long term (current) use of oral hypoglycemic drugs; E11.22 Type 2 diabetes mellitus with diabetic chronic kidney disease; I12.9 Hypertensive chronic kidney disease with stage 1 through stage 4 chronic kidney disease, or unspecified chronic kidney disease; N18.9 Chronic kidney disease, unspecified; E78.5 Hyperlipidemia, unspecified; D63.8 Anemia in other chronic diseases classified elsewhere; F10.11 Alcohol abuse, in remission; E88.09 Other disorders of plasma-protein metabolism, not elsewhere classified; D72.829 Elevated white blood cell count, unspecified; E11.65 Type 2 diabetes mellitus with hyperglycemia; G47.33 Obstructive sleep apnea (adult) (pediatric); Z86.73 Personal history of transient ischemic attack (TIA), and cerebral infarction without residual deficits; R91.8 Other nonspecific abnormal finding of lung field; Z87.891 Personal history of nicotine dependence; Z91.81 History of falling; E66.01 Morbid (severe) obesity due to excess calories; E80.6 Other disorders of bilirubin metabolism; Z86.19 Personal history of other infectious and parasitic diseases; Z87.11 Personal history of peptic ulcer disease
CPT/HCPCS: 36415; 71045-TC; 71250-TC; 76700-TC; 80048-TC; 80053-TC; 80061-TC; 80076-TC; 80202-TC; 81001; 82140-TC; 82728-TC; 82962-TC; 83540-TC; 83605-TC; 83735-TC; 83880; 84100-TC; 84439-TC; 84443-TC; 84484-TC; 85025-TC; 86360; 86480; 87040-TC; 87081-TC; 87899; 93307-TC; 93970-TC; 97112-TC; 97116-TC; 97530-TC; C9803; G0378; J0692; J1644; J1815; J3370; J7030; J7060

== ENCOUNTER 2024-03-11 21:39 | Emergency (ER) | payer OTHER ==
[~2024-03-11] VITALS: Ht 182.9 cm; Wt 140.6 kg
[~2024-03-11 21:39] MED LIST changes: -ALBU8.5H8 INH; +BICT1TAB PO; +CHOL100043 PO; -DOLU50TA PO; -EMTR1TAB17 PO; -GABA-534 PO; -HYDR-4384 PO; +LINA5TAB PO; -METF-440 PO; +METF-881 PO; -MULT1TAB62 PO; -NADO20TA3 PO; -OMEP20TA20 PO; -PRED20TA PO; +QUET25TA PO; -SULF1TAB47 PO; +SULF1TAB48 PO; +TAMS-12 PO; -TRAM50TA2 PO
[2024-03-11] MEDS ORDERED: CEPHALEXIN MONOHYDRATE 500 MG CAPSULE PO ONE (23:49)
[2024-03-11] MEDS: CEPHALEXIN MONOHYDRATE 500 MG CAPSULE PO ONE (23:52)
[2024-03-11] MEDS ORDERED: CEPH500C2 PO (23:53)
[2024-03-12 00:14] VITALS: BP 130/82; TEMP 98.1; O2SAT 98
== END 2024-03-12 00:16 | disposition home or self-care (01) ==
LOC: ER 21:51
DX: S99.822A Other specified injuries of left foot, initial encounter (principal); I10 Essential (primary) hypertension; E78.5 Hyperlipidemia, unspecified; J45.909 Unspecified asthma, uncomplicated; E11.9 Type 2 diabetes mellitus without complications; Z90.49 Acquired absence of other specified parts of digestive tract; Z79.84 Long term (current) use of oral hypoglycemic drugs; Z79.899 Other long term (current) drug therapy; W04.XXXA Fall while being carried or supported by other persons, initial encounter; Y93.89 Activity, other specified; Y92.89 Other specified places as the place of occurrence of the external cause; Y99.8 Other external cause status
CPT/HCPCS: 73660-TC

== ENCOUNTER 2024-03-28 14:37 | Inpatient (IN) | payer OTHER ==
[~2024-03-28] VITALS: Ht 172.7 cm; Wt 138.3 kg
[2024-03-28] VITALS (7 sets, daily range): BP systolic 132; BP diastolic 71; TEMP 98.1; O2SAT 89–96
[~2024-03-28 14:37] MED LIST changes: +CEPH500C2 PO
[2024-03-28 15:24] LABS: ABG BASE EXCESS -0.1 mmol/L; ABG OXYGEN SATURATION 95.9 % (92.0-98.5); ABG PCO2 51.5 mmHg (35.0-45.0); ABG PO2 92.1 mmHg (75.0-100.0); ABG TOTAL HEMOGLOBIN 13.7 G/dL (13.5-18.0); COHb 1.1 % (0.5-1.5); MetHb 0.3 % (0.0-1.5); O2Hb 94.6 % (94.0-97.0); SITE, ABG Right Radial; VENT MODE, BG 5LNC
[2024-03-28] MEDS ORDERED: methylPREDNISolone SOD SUCC 125 MG/2ML VIAL ONE (15:26)
[2024-03-28] MEDS ORDERED: ALBUTEROL FS 2.5 MG/3 ML VIAL.NEB ONE (15:27)
[2024-03-28] MEDS ORDERED: IPRATROPIUM NEB FS 0.5 MG/2.5 ML AMPUL.NEB ONE (15:28)
[2024-03-28] MEDS: methylPREDNISolone SOD SUCC 125 MG/2ML VIAL IV ONE (15:30)
[2024-03-28] MEDS: IPRATROPIUM NEB FS 0.5 MG/2.5 ML AMPUL.NEB NEB ONE (15:32)
[2024-03-28] MEDS: ALBUTEROL FS 2.5 MG/3 ML VIAL.NEB CONTNEB ONE (15:32)
[2024-03-28 15:49] LABS: BASOPHILS % (AUTO) 0.5 % (0.0-2.0); EOSINOPHILS # (AUTO) 0.1 K/uL (0.0-0.7); EOSINOPHILS % (AUTO) 1.6 % (0.0-6.0); HEMATOCRIT 38 % (39-51); HEMOGLOBIN 12.6 g/dL (13.5-17.5); LYMPHOCYTES # (AUTO) 0.7 K/uL (0.8-4.8); LYMPHOCYTES % (AUTO) 19.8 % (20.0-44.0); MEAN CORPUSCULAR HEMOGLOBIN 31 PG (26.0-33.0); MEAN CORPUSCULAR HGB CONC 34 g/dl (31.0-36.0); MEAN CORPUSCULAR VOLUME 92 fL (80-96); MONOCYTES # (AUTO) 0.4 K/uL (0.1-1.30); MONOCYTES % (AUTO) 12.3 % (2.0-12.0); NEUTROPHILS # (AUTO) 2.3 K/uL (1.8-8.9); NEUTROPHILS % (AUTO) 65.8 % (43.0-81.0); PLATELET COUNT (AUTO) 91 K/uL (150-450); RED BLOOD CELL COUNT(AUTO) 4.07 MIL/uL (4.5-6.0); RED CELL DISTRIBUTION WIDTH 16.1 % (11.5-15.0); WHITE BLOOD COUNT (AUTO) 3.5 K/uL (4.3-11.0)
[2024-03-28 16:10] LABS: CALCIUM, SERUM 8.9 mg/dL (8.5-10.1); CARBON DIOXIDE 31 mmol/L (21-32); CHLORIDE 103 mmol/L (98-107); CREATININE 1.2 mg/dL (0.6-1.3); GLUCOSE 122 mg/dL (74-106); POTASSIUM 4.5 mmol/L (3.5-5.1); SODIUM SERUM 137 mmol/L (136-145); UREA NITROGEN, BLOOD 16 mg/dL (7-18)
[2024-03-28 16:18] LABS: INR 1.29 (0.91-1.10); PARTIAL THROMBOPLASTIN TIME 32.8 SEC (24.3-34.3); PROTHROMBIN TIME 13.4 SECS (9.2-11.1)
[2024-03-28 16:25] LABS: ALANINE AMINOTRANSFERASE 77 U/L (12-78); ALBUMIN 2.2 g/dL (3.4-5.0); ALKALINE PHOSPHATASE 366 U/L (46-116); ASPARTATE AMINOTRANSFERASE 119 U/L (15-37); BILIRUBIN,DIRECT 2.7 mg/dL (0.0-0.2); NT-PRO BNP 203 pg/mL (0-125); TOTAL PROTEIN, SERUM 7.2 g/dL (6.4-8.2)
[2024-03-28] MEDS ORDERED: RIFA550T PO (17:01)
[2024-03-28] MEDS ORDERED: LACT10SO29 PO (17:01)
[2024-03-28] MEDS ORDERED: URSO500T PO (17:01)
[2024-03-28] MEDS ORDERED: FURO20TA4 PO (17:01)
[2024-03-28] MEDS ORDERED: SPIR50TA5 PO (17:01)
[2024-03-28] MEDS ORDERED: HYDR-3895 PO (17:01)
[2024-03-28] MEDS ORDERED: METH-647 PO (17:01)
[2024-03-28] MEDS ORDERED: FLUT1BLS6 IH (17:01)
[2024-03-28] MEDS ORDERED: LACTULOSE 10 G/15 ML UDC (PYXIS) ONE (17:22)
[2024-03-28] MEDS: LACTULOSE 10 G/15 ML UDC (PYXIS) PO ONE (17:27)
[2024-03-28] MEDS: LACTULOSE 10 G/15 ML UDC (PYXIS) PO SCH (19:00)
[2024-03-28] MEDS ORDERED: hydrALAZINE HCL IV 20 MG VIAL IV PRN (19:00)
[2024-03-28] MEDS ORDERED: ACETAMINOPHEN 325 MG TABLET PO PRN (19:00)
[2024-03-28] MEDS ORDERED: ONDANSETRON HCL/PF 4 MG/2 ML VIAL IVP PRN (19:00)
[2024-03-28] MEDS ORDERED: DEXTROSE 50%-WATER 50 ML DISP.SYRIN IV PRN (19:00)
[2024-03-28 20:39] LABS: ANISOCYTOSIS 1+; EOSINOPHILS % (MANUAL) 2 % (0-4); LYMPHOCYTES % (MANUAL) 25 % (16-48); MONOCYTES % (MANUAL) 13 % (0-11.0); NEUTROPHILS % (MANUAL) 58 (42-76); PLATELET ESTIMATE DECREASED; REACTIVE LYMPHOCYTES 2 % (0-0); ROULEAUX 1+
[2024-03-28] MEDS: QUETIAPINE FUMARATE 25 MG TABLET PO SCH (21:52)
[2024-03-28] MEDS: TAMSULOSIN 0.4 MG CAP.SR.24H PO SCH (21:52)
[2024-03-28] MEDS: hydrOXYzine PAMOATE 25 MG CAPSULE PO SCH (21:52)
[2024-03-28] MEDS: HEPARIN SODIUM, PORCINE 5000 UNITS/1 ML VIAL SQ SCH (22:12)
[2024-03-28] MEDS: BLOOD SUGAR DIAGNOSTIC 1 EACH STRIP VI SCH (22:45)
[2024-03-28] MEDS: *INSULIN REGULAR(HUMULIN R)HUM 100 UNIT/ML VIAL SQ PRN (22:46)
[2024-03-29] VITALS (13 sets, daily range): BP systolic 104–142; BP diastolic 55–107; TEMP 97.4–98.2; O2SAT 81–100
[2024-03-29] MEDS: ALBUTEROL FS 2.5 MG/0.5 ML VIAL.NEB NEB SCH (02:18)
[2024-03-29] MEDS: IPRATROPIUM NEB FS 0.5 MG/2.5 ML AMPUL.NEB NEB SCH (02:18)
[2024-03-29 07:59] LABS: BASOPHILS % (AUTO) 0.1 % (0.0-2.0); HEMATOCRIT 37 % (39-51); HEMOGLOBIN 12.5 g/dL (13.5-17.5); LYMPHOCYTES # (AUTO) 0.4 K/uL (0.8-4.8); LYMPHOCYTES % (AUTO) 16.1 % (20.0-44.0); MEAN CORPUSCULAR HEMOGLOBIN 31 PG (26.0-33.0); MEAN CORPUSCULAR HGB CONC 34 g/dl (31.0-36.0); MEAN CORPUSCULAR VOLUME 92 fL (80-96); MONOCYTES # (AUTO) 0.1 K/uL (0.1-1.30); MONOCYTES % (AUTO) 4.8 % (2.0-12.0); NEUTROPHILS # (AUTO) 1.8 K/uL (1.8-8.9); PLATELET COUNT (AUTO) 68 K/uL (150-450); RED BLOOD CELL COUNT(AUTO) 4.04 MIL/uL (4.5-6.0); RED CELL DISTRIBUTION WIDTH 15.9 % (11.5-15.0); WHITE BLOOD COUNT (AUTO) 2.3 K/uL (4.3-11.0)
[2024-03-29] MEDS: SULFAMETH/TRIMETH 800/160 MG 1 UDTAB TABLET PO SCH (08:32)
[2024-03-29] MEDS: SPIRONOLACTONE 25 MG TABLET PO SCH (08:33)
[2024-03-29] MEDS: RIFAXIMIN 550 MG TABLET PO SCH (08:33)
[2024-03-29] MEDS: FUROSEMIDE 20 MG TABLET PO SCH (08:33)
[2024-03-29 08:49] LABS: ALBUMIN 2.1 g/dL (3.4-5.0); BILIRUBIN,TOTAL 3.4 mg/dL (0.2-1.0); MAGNESIUM 2.2 mg/dL (1.8-2.4); PHOSPHORUS 3.5 mg/dL (2.5-4.9); POTASSIUM 4.7 mmol/L (3.5-5.1); TOTAL PROTEIN, SERUM 7.3 g/dL (6.4-8.2)
[2024-03-29] MEDS: LEVOFLOXACIN 750 MG /D5W 150ML 750 MG in PREMIX 1 EA IV SCH (09:44)
[2024-03-29] MEDS: INSULIN REGULAR, HUMAN 100 UNIT/ML 3 ML VIAL SQ PRN (12:46)
[2024-03-29] MEDS: FUROSEMIDE 40 MG/4 ML VIAL IV SCH (13:04)
[2024-03-29 15:19] LABS: BAND % (MANUAL) 2 % (0.0-5.0); LYMPHOCYTES % (MANUAL) 20 % (16-48); MONOCYTES % (MANUAL) 3 % (0-11.0)
[2024-03-29 15:20] LABS: NEUTROPHILS % (MANUAL) 75 (42-76); PLATELET ESTIMATE DECREASED
[2024-03-29] MEDS: URSODIOL PO SCH (15:21)
[2024-03-29] MEDS: [UNRECOGNIZED DRUG - OTHER] PO SCH (15:21)
[2024-03-29] MEDS: FLUTICASONE INH SCH (15:22)
[2024-03-29] MEDS: VILANTER INH SCH (15:22)
[2024-03-29] MEDS: UMECLIDIN INH SCH (15:22)
[2024-03-30] VITALS (12 sets, daily range): BP systolic 124–134; BP diastolic 72–76; TEMP 97.9–98.5; O2SAT 84–98
[2024-03-30 07:17] LABS: BASOPHILS % (AUTO) 0.1 % (0.0-2.0); EOSINOPHILS % (AUTO) 0.8 % (0.0-6.0); HEMATOCRIT 35 % (39-51); HEMOGLOBIN 11.7 g/dL (13.5-17.5); LYMPHOCYTES # (AUTO) 0.4 K/uL (0.8-4.8); LYMPHOCYTES % (AUTO) 15.3 % (20.0-44.0); MEAN CORPUSCULAR HEMOGLOBIN 31 PG (26.0-33.0); MEAN CORPUSCULAR HGB CONC 34 g/dl (31.0-36.0); MEAN CORPUSCULAR VOLUME 92 fL (80-96); MONOCYTES # (AUTO) 0.3 K/uL (0.1-1.30); MONOCYTES % (AUTO) 11.1 % (2.0-12.0); NEUTROPHILS % (AUTO) 72.7 % (43.0-81.0); PLATELET COUNT (AUTO) 66 K/uL (150-450); RED BLOOD CELL COUNT(AUTO) 3.77 MIL/uL (4.5-6.0); RED CELL DISTRIBUTION WIDTH 15.8 % (11.5-15.0); WHITE BLOOD COUNT (AUTO) 2.7 K/uL (4.3-11.0)
[2024-03-30 07:49] LABS: CALCIUM, SERUM 8.5 mg/dL (8.5-10.1); CREATININE 1.2 mg/dL (0.6-1.3); POTASSIUM 3.5 mmol/L (3.5-5.1)
[2024-03-30] MEDS: methylPREDNISolone SOD SUCC 125 MG/2ML VIAL IV ONE (10:22)
[2024-03-30] MEDS: MORPHINE SULFATE INJ 2 MG/ML DISP.SYRIN IV PRN (11:54)
[2024-03-30 12:08] LABS: ANISOCYTOSIS 1+; BASOPHILS % (MANUAL) 0 % (0.0-2.0); EOSINOPHILS % (MANUAL) 0 % (0-4); LYMPHOCYTES % (MANUAL) 17 % (16-48); MONOCYTES % (MANUAL) 8 % (0-11.0); NEUTROPHILS % (MANUAL) 75 (42-76); PLATELET ESTIMATE DECREASED
[2024-03-30] MEDS: methylPREDNISolone SOD SUCC 125 MG/2ML VIAL IV SCH (12:39)
[2024-03-31] VITALS (7 sets, daily range): BP systolic 126–131; BP diastolic 70–72; TEMP 97.5–97.6; O2SAT 94–100
[2024-03-31 07:35] LABS: CALCIUM, SERUM 8.3 mg/dL (8.5-10.1); CREATININE 1.1 mg/dL (0.6-1.3); MAGNESIUM 2.1 mg/dL (1.8-2.4); PHOSPHORUS 3.2 mg/dL (2.5-4.9)
[2024-03-31 07:39] LABS: LYMPHOCYTES # (AUTO) 0.2 K/uL (0.8-4.8); MONOCYTES # (AUTO) 0.1 K/uL (0.1-1.30); NEUTROPHILS # (AUTO) 1.9 K/uL (1.8-8.9)
[2024-03-31 07:50] LABS: HEMATOCRIT 36 % (39-51); LYMPHOCYTES % (AUTO) 7.5 % (20.0-44.0); MEAN CORPUSCULAR HEMOGLOBIN 31 PG (26.0-33.0); MEAN CORPUSCULAR HGB CONC 34 g/dl (31.0-36.0); MEAN CORPUSCULAR VOLUME 92 fL (80-96); MONOCYTES % (AUTO) 3.6 % (2.0-12.0); NEUTROPHILS % (AUTO) 88.9 % (43.0-81.0); PLATELET COUNT (AUTO) 63 K/uL (150-450); RED BLOOD CELL COUNT(AUTO) 3.89 MIL/uL (4.5-6.0); RED CELL DISTRIBUTION WIDTH 15.9 % (11.5-15.0); WHITE BLOOD COUNT (AUTO) 2.1 K/uL (4.3-11.0)
[2024-03-31] MEDS: FUROSEMIDE 40 MG/4 ML VIAL IV SCH (08:21)
[2024-03-31] MEDS: LEVOFLOXACIN (250MG) 250 MG TABLET PO SCH (08:21)
[2024-03-31 12:56] LABS: ANISOCYTOSIS 1+; BASOPHILS % (MANUAL) 0 % (0.0-2.0); EOSINOPHILS % (MANUAL) 0 % (0-4); LYMPHOCYTES % (MANUAL) 4 % (16-48); MONOCYTES % (MANUAL) 3 % (0-11.0); NEUTROPHILS % (MANUAL) 93 (42-76); PLATELET ESTIMATE DECREASED
[2024-04-01] VITALS (12 sets, daily range): BP systolic 119–132; BP diastolic 53–73; TEMP 98.1–98.3; O2SAT 92–100
[2024-04-01 06:47] LABS: BASOPHILS % (AUTO) 0.1 % (0.0-2.0); HEMATOCRIT 36 % (39-51); HEMOGLOBIN 12.3 g/dL (13.5-17.5); LYMPHOCYTES # (AUTO) 0.2 K/uL (0.8-4.8); LYMPHOCYTES % (AUTO) 5.3 % (20.0-44.0); MEAN CORPUSCULAR HEMOGLOBIN 31 PG (26.0-33.0); MEAN CORPUSCULAR HGB CONC 34 g/dl (31.0-36.0); MEAN CORPUSCULAR VOLUME 91 fL (80-96); MONOCYTES # (AUTO) 0.2 K/uL (0.1-1.30); MONOCYTES % (AUTO) 5.4 % (2.0-12.0); NEUTROPHILS # (AUTO) 3.1 K/uL (1.8-8.9); NEUTROPHILS % (AUTO) 89.2 % (43.0-81.0); PLATELET COUNT (AUTO) 84 K/uL (150-450); RED BLOOD CELL COUNT(AUTO) 3.97 MIL/uL (4.5-6.0); RED CELL DISTRIBUTION WIDTH 16.1 % (11.5-15.0); WHITE BLOOD COUNT (AUTO) 3.5 K/uL (4.3-11.0)
[2024-04-01 07:14] LABS: CALCIUM, SERUM 8.2 mg/dL (8.5-10.1); CREATININE 1.1 mg/dL (0.6-1.3); MAGNESIUM 2.2 mg/dL (1.8-2.4); POTASSIUM 3.7 mmol/L (3.5-5.1)
[2024-04-01] MEDS ORDERED: LEVO250T59 PO (08:48)
[2024-04-01] MEDS ORDERED: PRED50TA PO (08:48)
[2024-04-01 10:07] LABS: LYMPHOCYTES % (MANUAL) 5 % (16-48); MONOCYTES % (MANUAL) 10 % (0-11.0); NEUTROPHILS % (MANUAL) 85 (42-76); PLATELET ESTIMATE DECREASED
[2024-04-01 10:10] LABS: ANISOCYTOSIS 1+
[2024-04-02] VITALS (8 sets, daily range): BP systolic 123–131; BP diastolic 73–74; TEMP 97.9–98.8; O2SAT 92–100
[2024-04-02] MEDS: OZEMPIC SQ SCH (18:43)
[2024-04-03] VITALS (13 sets, daily range): BP systolic 121–148; BP diastolic 68–79; TEMP 97.9–98.2; O2SAT 93–99
[2024-04-03 08:03] LABS: CALCIUM, SERUM 8.2 mg/dL (8.5-10.1); CREATININE 0.9 mg/dL (0.6-1.3); MAGNESIUM 2.4 mg/dL (1.8-2.4); PHOSPHORUS 3.6 mg/dL (2.5-4.9); POTASSIUM 4.9 mmol/L (3.5-5.1)
[2024-04-03 08:06] LABS: THYROID STIMULATING HORMONE 0.484 uIU/mL (0.358-3.74); URIC ACID 3.9 mg/dL (2.6-7.2)
[2024-04-04] VITALS (12 sets, daily range): BP systolic 128–147; BP diastolic 72–78; TEMP 98.1–98.6; O2SAT 93–98
[2024-04-04 08:13] LABS: URINE SODIUM, RANDOM 22 mmol/l (40-220)
[2024-04-04 09:09] LABS: BASOPHILS % (AUTO) 0.1 % (0.0-2.0); EOSINOPHILS % (AUTO) 0.1 % (0.0-6.0); HEMATOCRIT 39 % (39-51); LYMPHOCYTES # (AUTO) 0.2 K/uL (0.8-4.8); LYMPHOCYTES % (AUTO) 6.2 % (20.0-44.0); MEAN CORPUSCULAR HEMOGLOBIN 31 PG (26.0-33.0); MEAN CORPUSCULAR HGB CONC 33 g/dl (31.0-36.0); MEAN CORPUSCULAR VOLUME 93 fL (80-96); MONOCYTES # (AUTO) 0.1 K/uL (0.1-1.30); MONOCYTES % (AUTO) 2.9 % (2.0-12.0); NEUTROPHILS # (AUTO) 2.6 K/uL (1.8-8.9); NEUTROPHILS % (AUTO) 90.7 % (43.0-81.0); PLATELET COUNT (AUTO) 71 K/uL (150-450); RED BLOOD CELL COUNT(AUTO) 4.21 MIL/uL (4.5-6.0); RED CELL DISTRIBUTION WIDTH 16.7 % (11.5-15.0); WHITE BLOOD COUNT (AUTO) 2.9 K/uL (4.3-11.0)
[2024-04-04 09:35] LABS: ALBUMIN 2.2 g/dL (3.4-5.0); CALCIUM, SERUM 9.1 mg/dL (8.5-10.1); MAGNESIUM 2.5 mg/dL (1.8-2.4); PHOSPHORUS 3.7 mg/dL (2.5-4.9); POTASSIUM 4.7 mmol/L (3.5-5.1); TOTAL PROTEIN, SERUM 7.2 g/dL (6.4-8.2)
[2024-04-04 10:27] LABS: BASOPHILS % (MANUAL) 0 % (0.0-2.0); EOSINOPHILS % (MANUAL) 0 % (0-4); LYMPHOCYTES % (MANUAL) 8 % (16-48); MONOCYTES % (MANUAL) 5 % (0-11.0); NEUTROPHILS % (MANUAL) 87 (42-76); PLATELET ESTIMATE DECREASED
[2024-04-05 00:41] VITALS: BP 140/71; TEMP 98.2; O2SAT 95
[2024-04-05 08:00] VITALS: BP 133/76; TEMP 98.9; O2SAT 94
[2024-04-05] MEDS: ALBUTEROL FS 2.5 MG/0.5 ML VIAL.NEB NEB PRN (11:07)
[2024-04-05 11:10] VITALS: O2SAT 93
[2024-04-05 11:20] VITALS: O2SAT 98
[2024-04-05] MEDS: methylPREDNISolone SOD SUCC 125 MG/2ML VIAL IV SCH (12:12)
== END 2024-04-05 16:49 | disposition home or self-care (01) | DRG 291 ==
LOC: ER 14:50 → TELE 19:23 → MED 03-29 11:04
PROVIDERS: ADMIT Internal Medicine; ATTEND Internal Medicine
DX: I11.0 Hypertensive heart disease with heart failure (principal); D61.810 Antineoplastic chemotherapy induced pancytopenia; I50.33 Acute on chronic diastolic (congestive) heart failure; J96.01 Acute respiratory failure with hypoxia; K83.1 Obstruction of bile duct; J44.1 Chronic obstructive pulmonary disease with (acute) exacerbation; I85.10 Secondary esophageal varices without bleeding; C22.0 Liver cell carcinoma; E72.20 Disorder of urea cycle metabolism, unspecified; Z68.42 Body mass index [BMI] 45.0-49.9, adult; E87.1 Hypo-osmolality and hyponatremia; J44.0 Chronic obstructive pulmonary disease with (acute) lower respiratory infection; J20.8 Acute bronchitis due to other specified organisms; D69.6 Thrombocytopenia, unspecified; K74.60 Unspecified cirrhosis of liver; Z66 Do not resuscitate; E11.9 Type 2 diabetes mellitus without complications; T45.1X5A Adverse effect of antineoplastic and immunosuppressive drugs, initial encounter; Y92.9 Unspecified place or not applicable; B19.20 Unspecified viral hepatitis C without hepatic coma; Z90.49 Acquired absence of other specified parts of digestive tract; Z88.8 Allergy status to other drugs, medicaments and biological substances; Z79.51 Long term (current) use of inhaled steroids; Z79.899 Other long term (current) drug therapy; Z79.84 Long term (current) use of oral hypoglycemic drugs; R74.01 Elevation of levels of liver transaminase levels; E80.6 Other disorders of bilirubin metabolism; E66.01 Morbid (severe) obesity due to excess calories; E78.5 Hyperlipidemia, unspecified; G47.33 Obstructive sleep apnea (adult) (pediatric); Z79.01 Long term (current) use of anticoagulants; R63.1 Polydipsia; Z87.891 Personal history of nicotine dependence
CPT/HCPCS: 36415; 36600; 71045-TC; 71250-TC; 80048-TC; 80053-TC; 80076-TC; 82140-TC; 82803-TC; 82962-TC; 83735-TC; 83880; 83935-TC; 84100-TC; 84300-TC; 84443-TC; 84484-TC; 84550-TC; 85025-TC; 85730-TC; 93307-TC; 94760-TC; 94761-TC; 94762-TC; 94799-TC; A4216; A6403; G0378; J1644; J1815; J1940; J1956; J2270; J2919; J7030; Q0177

== ENCOUNTER 2024-08-06 21:57 | Inpatient (IN) | payer OTHER ==
[~2024-08-06] VITALS: Ht 172.7 cm; Wt 133.4 kg
[~2024-08-06 21:57] MED LIST changes: -CEPH500C2 PO; +FLUT1BLS6 IH; +FURO20TA4 PO; +HYDR-3895 PO; +LACT10SO29 PO; +LEVO250T59 PO; +METH-647 PO; +PRED50TA PO; +RIFA550T PO; -SPIR100T5 PO; +SPIR50TA5 PO; +URSO500T PO
[2024-08-07 00:23] LABS: BASOPHILS % (AUTO) 0.2 % (0.0-2.0); HEMATOCRIT 32 % (39-51); HEMOGLOBIN 10.3 g/dL (13.5-17.5); LYMPHOCYTES # (AUTO) 0.5 K/uL (0.8-4.8); LYMPHOCYTES % (AUTO) 6.8 % (20.0-44.0); MEAN CORPUSCULAR HEMOGLOBIN 28 PG (26.0-33.0); MEAN CORPUSCULAR HGB CONC 32 g/dl (31.0-36.0); MEAN CORPUSCULAR VOLUME 89 fL (80-96); MONOCYTES # (AUTO) 0.7 K/uL (0.1-1.30); MONOCYTES % (AUTO) 8.7 % (2.0-12.0); NEUTROPHILS # (AUTO) 6.8 K/uL (1.8-8.9); NEUTROPHILS % (AUTO) 84.3 % (43.0-81.0); PLATELET COUNT (AUTO) 97 K/uL (150-450); RED BLOOD CELL COUNT(AUTO) 3.65 MIL/uL (4.5-6.0); RED CELL DISTRIBUTION WIDTH 26.8 % (11.5-15.0)
[2024-08-07 00:38] LABS: INR 1.96 (0.91-1.10); PARTIAL THROMBOPLASTIN TIME 31.5 SEC (24.3-34.3); PROTHROMBIN TIME 19.9 SECS (9.2-11.1); SERUM AMMONIA 53 umol/L (11-32)
[2024-08-07 00:39] LABS: CALCIUM, SERUM 10.1 mg/dL (8.5-10.1); CARBON DIOXIDE 20 mmol/L (21-32); CHLORIDE 99 mmol/L (98-107); CREATININE 1.9 mg/dL (0.6-1.3); GLUCOSE 105 mg/dL (74-106); POTASSIUM 5.8 mmol/L (3.5-5.1); SODIUM SERUM 131 mmol/L (136-145); UREA NITROGEN, BLOOD 63 mg/dL (7-18)
[2024-08-07 00:51] LABS: ALANINE AMINOTRANSFERASE 108 U/L (12-78); ALBUMIN 1.8 g/dL (3.4-5.0); ALKALINE PHOSPHATASE 289 U/L (46-116); ASPARTATE AMINOTRANSFERASE 168 U/L (15-37); BILIRUBIN,DIRECT 19.2 mg/dL (0.0-0.2); BILIRUBIN,TOTAL 23.1 mg/dL (0.2-1.0); LACTIC ACID 5.9 mmol/L (0.4-2.0); LIPASE 207 U/L (16-77)
[2024-08-07 01:15] LABS: BASOPHILS % (MANUAL) 0 % (0.0-2.0); EOSINOPHILS % (MANUAL) 0 % (0-4); LYMPHOCYTES % (MANUAL) 8 % (16-48); MONOCYTES % (MANUAL) 11 % (0-11.0); NEUTROPHILS % (MANUAL) 81 (42-76)
[2024-08-07 01:16] LABS: ANISOCYTOSIS 1+; OVALOCYTES RARE; PLATELET ESTIMATE DECREASED
[2024-08-07] MEDS ORDERED: LACTULOSE 10 G/15 ML UDC (PYXIS) ONE (01:22)
[2024-08-07] MEDS: LACTULOSE 10 G/15 ML UDC (PYXIS) PO ONE (01:26)
[2024-08-07 01:27] LABS: APPEARANCE,URINE CLEAR (CLEAR); BILIRUBIN,URINE 3+ (NEGATIVE); BLOOD, URINE NEGATIVE Ery/uL (NEGATIVE); COLOR,URINE DARK YELLOW (YELLOW); KETONES,URINE NEGATIVE (NEGATIVE); LEUKOCYTE ESTERASE ,URINE NEGATIVE (NEGATIVE); NITRITE, URINE NEGATIVE (NEGATIVE); PH,URINE 5.5 (5.0-8.0); PROTEIN,URINE NEGATIVE (NEGATIVE); UGLUCOSE TRACE mg/dL (NEGATIVE)
[2024-08-07 01:29] LABS: ADD URINE CULTURE NO; BACTERIA,URINE Rare /HPF (None Seen); SQUAMOUS EPITHELIAL CELL,UR Few /HPF (None Seen); WBC,URINE 0-2 /HPF (0-3)
[2024-08-07] MEDS ORDERED: MAG HYDROX/AL HYDROX/SIMETH 30 ML UDC PO PRN (02:00)
[2024-08-07] MEDS ORDERED: ALBUTEROL FS 2.5 MG/3 ML VIAL.NEB NEB ONE (02:00)
[2024-08-07] MEDS ORDERED: SODIUM ZIRCONIUM CYCLOSILICATE 10 GM POWD.PACK ONE (02:00)
[2024-08-07] MEDS ORDERED: Z GUARD REMEDY 4 OZ OINT TP PRN (02:00)
[2024-08-07] MEDS ORDERED: MAGNESIUM HYDROXIDE 30 ML UDC PO PRN (02:00)
[2024-08-07] MEDS ORDERED: ZOLPIDEM TARTRATE 5 MG TABLET PO PRN (02:00)
[2024-08-07] MEDS: SODIUM ZIRCONIUM CYCLOSILICATE 10 GM POWD.PACK PO ONE (02:10)
[2024-08-07] MEDS ORDERED: DEXTROSE 50%-WATER 50 ML DISP.SYRIN IV PRN (03:00)
[2024-08-07 04:22] VITALS: BP 126/59; TEMP 98.4; O2SAT 94
[2024-08-07] MEDS: HYDROMORPHONE 1 MG/1 ML DISP.SYRIN IV PRN (05:13)
[2024-08-07] MEDS: BLOOD SUGAR DIAGNOSTIC 1 EACH STRIP IN SCH (06:42)
[2024-08-07] MEDS: INSULIN REGULAR, HUMAN 100 UNIT/ML 3 ML VIAL SQ PRN (06:43)
[2024-08-07] MEDS: ONDANSETRON HCL/PF 4 MG/2 ML VIAL IVP PRN (06:53)
[2024-08-07 08:00] VITALS: BP 123/50; TEMP 98.4; O2SAT 96
[2024-08-07 08:23] LABS: ALBUMIN 1.7 g/dL (3.4-5.0); BILIRUBIN,TOTAL 21.9 mg/dL (0.2-1.0); CALCIUM, SERUM 9.9 mg/dL (8.5-10.1); CREATININE 2.1 mg/dL (0.6-1.3); POTASSIUM 5.9 mmol/L (3.5-5.1); TOTAL PROTEIN, SERUM 5.7 g/dL (6.4-8.2)
[2024-08-07] MEDS ORDERED: SPIRONOLACTONE 25 MG TABLET PO SCH (09:00)
[2024-08-07] MEDS: LACTULOSE 10 G/15 ML UDC (PYXIS) PO SCH ×2 (09:03→10:30)
[2024-08-07] MEDS: hydrOXYzine PAMOATE 25 MG CAPSULE PO SCH (09:03)
[2024-08-07] MEDS: METHOCARBAMOL (500MG) 500 MG TABLET PO SCH (09:03)
[2024-08-07] MEDS: LINAGLIPTIN 5 MG TABLET PO SCH (09:03)
[2024-08-07] MEDS: TAMSULOSIN 0.4 MG CAP.SR.24H PO SCH (09:03)
[2024-08-07] MEDS: CHOLECALCIFEROL 1,000 UNIT TABLET (VIT D3) PO SCH (09:03)
[2024-08-07] MEDS: RIFAXIMIN 550 MG TABLET PO SCH (09:03)
[2024-08-07] MEDS: PANTOPRAZOLE 40 MG VIAL IV SCH (09:04)
[2024-08-07] MEDS: predniSONE 20 MG TABLET PO SCH (09:04)
[2024-08-07] MEDS: FUROSEMIDE 40 MG/4 ML VIAL IV SCH (09:04)
[2024-08-07] MEDS: SODIUM POLYSTYRENE SULFONATE 15 G/60 ML BOTTLE PO ONE ×2 (09:57→20:32)
[2024-08-07] MEDS ORDERED: SODIUM POLYSTYRENE SULFONATE 15 G/60 ML BOTTLE PO ONE (11:00)
[2024-08-07] MEDS: ALBUMIN 25% 25 GM in PREMIX 1 EA IV SCH (11:05)
[2024-08-07 12:00] VITALS: BP 125/55; TEMP 98.7; O2SAT 99
[2024-08-07] MEDS ORDERED: QUET25TA PO (13:57)
[2024-08-07] MEDS ORDERED: TIRZEPATIDE SQ (13:57)
[2024-08-07] MEDS ORDERED: METH4TAB16 PO (13:57)
[2024-08-07] MEDS ORDERED: HYDR-4209 PO (13:57)
[2024-08-07] MEDS ORDERED: CAMPHOR TP (13:57)
[2024-08-07] MEDS ORDERED: TRIA80CR12 TP (13:57)
[2024-08-07] MEDS ORDERED: SPIR100T5 PO (13:57)
[2024-08-07] MEDS ORDERED: MENTHOL TP (13:57)
[2024-08-07] MEDS ORDERED: METHOCARBAMOL (500MG) 500 MG TABLET PO PRN (14:09)
[2024-08-07 14:25] LABS: CALCIUM, SERUM 9.9 mg/dL (8.5-10.1); CREATININE 2.4 mg/dL (0.6-1.3); POTASSIUM 5.6 mmol/L (3.5-5.1)
[2024-08-07] MEDS ORDERED: methylPREDNISolone DOSPAK(4MG) 1 PACK TAB.DS.PK PO SCH (15:30)
[2024-08-07 16:00] VITALS: BP 134/48; TEMP 97.1; O2SAT 96
[2024-08-07 20:00] VITALS: BP 121/57; TEMP 96.4; O2SAT 97
[2024-08-07] MEDS ORDERED: QUETIAPINE FUMARATE 25 MG TABLET PO SCH (22:00)
[2024-08-08] VITALS: BP 131/63; TEMP 96.3; O2SAT 98
[2024-08-08 04:00] VITALS: BP 131/68; TEMP 96; O2SAT 97
[2024-08-08 08:00] VITALS: BP 137/53; TEMP 97.7; O2SAT 95
[2024-08-08] MEDS: LACTULOSE 10 G/15 ML UDC (PYXIS) PO SCH (08:19)
[2024-08-08] MEDS: TRELEGY ELLIPTA PO SCH (08:19)
[2024-08-08] MEDS: TAMSULOSIN 0.4 MG CAP.SR.24H PO SCH (08:20)
[2024-08-08] MEDS: URSODIOL 500 MG PO SCH (08:20)
[2024-08-08 08:43] LABS: ALBUMIN 3.2 g/dL (3.4-5.0); BILIRUBIN,DIRECT 22.7 mg/dL (0.0-0.2); BILIRUBIN,TOTAL 30.1 mg/dL (0.2-1.0); CALCIUM, SERUM 10.3 mg/dL (8.5-10.1); CREATININE 2.4 mg/dL (0.6-1.3); MAGNESIUM 3.1 mg/dL (1.8-2.4); PHOSPHORUS 5.7 mg/dL (2.5-4.9); POTASSIUM 4.7 mmol/L (3.5-5.1); TOTAL PROTEIN, SERUM 6.4 g/dL (6.4-8.2)
[2024-08-08] MEDS ORDERED: SULFAMETH/TRIMETH 800/160 MG 1 UDTAB TABLET PO SCH (09:00)
[2024-08-08 09:08] LABS: EOSINOPHILS % (AUTO) 0.1 % (0.0-6.0); HEMATOCRIT 28 % (39-51); HEMOGLOBIN 9.1 g/dL (13.5-17.5); LYMPHOCYTES # (AUTO) 0.4 K/uL (0.8-4.8); LYMPHOCYTES % (AUTO) 5.7 % (20.0-44.0); MEAN CORPUSCULAR HEMOGLOBIN 29 PG (26.0-33.0); MEAN CORPUSCULAR HGB CONC 32 g/dl (31.0-36.0); MEAN CORPUSCULAR VOLUME 89 fL (80-96); MONOCYTES # (AUTO) 0.5 K/uL (0.1-1.30); MONOCYTES % (AUTO) 7.6 % (2.0-12.0); NEUTROPHILS # (AUTO) 5.4 K/uL (1.8-8.9); NEUTROPHILS % (AUTO) 86.6 % (43.0-81.0); RED BLOOD CELL COUNT(AUTO) 3.14 MIL/uL (4.5-6.0); RED CELL DISTRIBUTION WIDTH 26.1 % (11.5-15.0); WHITE BLOOD COUNT (AUTO) 6.2 K/uL (4.3-11.0)
[2024-08-08 09:09] LABS: PLATELET COUNT (AUTO) 72 K/uL (150-450)
[2024-08-08 10:08] LABS: ANISOCYTOSIS 1+; BASOPHILS % (MANUAL) 0 % (0.0-2.0); EOSINOPHILS % (MANUAL) 0 % (0-4); LYMPHOCYTES % (MANUAL) 8 % (16-48); MONOCYTES % (MANUAL) 5 % (0-11.0); NEUTROPHILS % (MANUAL) 87 (42-76); OVALOCYTES 1+; PLATELET ESTIMATE DECREASED
[2024-08-08] MEDS: TRIAMCINOLONE ACETONIDE 0.1% CR 15 GM TUBE TP SCH (10:44)
[2024-08-08 12:00] VITALS: BP 130/58; TEMP 97.9; O2SAT 97
[2024-08-08] MEDS: IV 1/2NS 1000 ML 1,000 ML IV SCH (12:53)
[2024-08-08] MEDS: GLUCERNA SHAKE 237 ML CAN PO SCH (15:01)
[2024-08-08] MEDS: LACTULOSE 10 G/15 ML UDC (PYXIS) PO PRN (15:37)
[2024-08-08 16:00] VITALS: BP 122/74; TEMP 98; O2SAT 91
[2024-08-08 20:00] VITALS: BP 116/80; TEMP 97.7; O2SAT 94
[2024-08-09] VITALS (7 sets, daily range): BP systolic 97–130; BP diastolic 42–90; TEMP 97–98.6; O2SAT 94–100
[2024-08-09] MEDS: hydrOXYzine PAMOATE 25 MG CAPSULE PO PRN (00:05)
[2024-08-09 06:07] LABS: PTH, INTACT 11 pg/mL (15-65)
[2024-08-09 06:54] LABS: BASOPHILS % (AUTO) 0.2 % (0.0-2.0); EOSINOPHILS % (AUTO) 0.7 % (0.0-6.0); HEMATOCRIT 28 % (39-51); HEMOGLOBIN 9.2 g/dL (13.5-17.5); LYMPHOCYTES # (AUTO) 0.4 K/uL (0.8-4.8); LYMPHOCYTES % (AUTO) 8.1 % (20.0-44.0); MEAN CORPUSCULAR HEMOGLOBIN 29 PG (26.0-33.0); MEAN CORPUSCULAR HGB CONC 33 g/dl (31.0-36.0); MEAN CORPUSCULAR VOLUME 89 fL (80-96); MONOCYTES # (AUTO) 0.4 K/uL (0.1-1.30); MONOCYTES % (AUTO) 8.2 % (2.0-12.0); NEUTROPHILS # (AUTO) 4.4 K/uL (1.8-8.9); NEUTROPHILS % (AUTO) 82.8 % (43.0-81.0); PLATELET COUNT (AUTO) 92 K/uL (150-450); RED BLOOD CELL COUNT(AUTO) 3.13 MIL/uL (4.5-6.0); RED CELL DISTRIBUTION WIDTH 26.4 % (11.5-15.0); WHITE BLOOD COUNT (AUTO) 5.3 K/uL (4.3-11.0)
[2024-08-09 07:33] LABS: ALANINE AMINOTRANSFERASE 133 U/L (12-78); ALBUMIN 2.8 g/dL (3.4-5.0); ALKALINE PHOSPHATASE 221 U/L (46-116); ASPARTATE AMINOTRANSFERASE 199 U/L (15-37); BILIRUBIN,TOTAL 30.1 mg/dL (0.2-1.0); CALCIUM, SERUM 10.3 mg/dL (8.5-10.1); CARBON DIOXIDE 23 mmol/L (21-32); CHLORIDE 101 mmol/L (98-107); CREATININE 2.2 mg/dL (0.6-1.3); GLUCOSE 125 mg/dL (74-106); POTASSIUM 4.1 mmol/L (3.5-5.1); SERUM AMMONIA 98 umol/L (11-32); SODIUM SERUM 135 mmol/L (136-145); TOTAL PROTEIN, SERUM 5.8 g/dL (6.4-8.2); UREA NITROGEN, BLOOD 73 mg/dL (7-18)
[2024-08-09 07:51] LABS: LIPASE > 375 U/L (16-77)
[2024-08-09 08:30] LABS: PHOSPHORUS 4.3 mg/dL (2.5-4.9)
[2024-08-09] MEDS: PANTOPRAZOLE 40 MG TABLET.DR PO SCH (09:08)
[2024-08-09] MEDS: IV 1/2NS 1000 ML 1,000 ML IV PRN (11:31)
[2024-08-09 11:53] LABS: ANISOCYTOSIS 1+; BASOPHILS % (MANUAL) 0 % (0.0-2.0); EOSINOPHILS % (MANUAL) 0 % (0-4); HYPOCHROMASIA 1+; LYMPHOCYTES % (MANUAL) 11 % (16-48); MONOCYTES % (MANUAL) 8 % (0-11.0); NEUTROPHILS % (MANUAL) 81 (42-76); PLATELET ESTIMATE DECREASED
[2024-08-09] MEDS: LACTULOSE 10 G/15 ML UDC (PYXIS) PO SCH (15:28)
[2024-08-10] VITALS (7 sets, daily range): BP systolic 91–130; BP diastolic 44–81; TEMP 96.8–97.8; O2SAT 95–97
[2024-08-10 08:07] LABS: C-REACTIVE PROTEIN 1.06 mg/dL (0.0-0.30)
[2024-08-10 08:10] LABS: HEPATITIS B CORE AB, IgM Negative (Negative); HEPATITIS B CORE AB, TOTAL Positive (Negative); HEPATITIS B SURFACE AB Reactive (.)
[2024-08-10 08:22] LABS: ALBUMIN 2.5 g/dL (3.4-5.0); BILIRUBIN,TOTAL 27.7 mg/dL (0.2-1.0); CALCIUM, SERUM 9.8 mg/dL (8.5-10.1); MAGNESIUM 2.9 mg/dL (1.8-2.4); PHOSPHORUS 5.1 mg/dL (2.5-4.9); POTASSIUM 4.2 mmol/L (3.5-5.1); TOTAL PROTEIN, SERUM 5.2 g/dL (6.4-8.2)
[2024-08-10 08:25] LABS: THYROID STIMULATING HORMONE 1.56 uIU/mL (0.358-3.74)
[2024-08-10 08:35] LABS: RHEUMATOID FACTOR SCREEN NEGATIVE (NEGATIVE)
[2024-08-10] MEDS: FOLIC ACID 1 MG TABLET PO SCH (08:43)
[2024-08-10 10:10] LABS: BASOPHILS % (AUTO) 0.2 % (0.0-2.0); EOSINOPHILS # (AUTO) 0.2 K/uL (0.0-0.7); EOSINOPHILS % (AUTO) 2.9 % (0.0-6.0); HEMATOCRIT 28 % (39-51); HEMOGLOBIN 9.1 g/dL (13.5-17.5); LYMPHOCYTES # (AUTO) 0.5 K/uL (0.8-4.8); LYMPHOCYTES % (AUTO) 8.3 % (20.0-44.0); MEAN CORPUSCULAR HEMOGLOBIN 29 PG (26.0-33.0); MEAN CORPUSCULAR HGB CONC 32 g/dl (31.0-36.0); MEAN CORPUSCULAR VOLUME 90 fL (80-96); MONOCYTES # (AUTO) 0.7 K/uL (0.1-1.30); MONOCYTES % (AUTO) 11.2 % (2.0-12.0); NEUTROPHILS # (AUTO) 4.5 K/uL (1.8-8.9); NEUTROPHILS % (AUTO) 77.4 % (43.0-81.0); RED BLOOD CELL COUNT(AUTO) 3.12 MIL/uL (4.5-6.0); RED CELL DISTRIBUTION WIDTH 26.8 % (11.5-15.0); WHITE BLOOD COUNT (AUTO) 5.9 K/uL (4.3-11.0)
[2024-08-10 10:14] LABS: PLATELET COUNT (AUTO) 48 K/uL (150-450)
[2024-08-10 11:35] LABS: ANISOCYTOSIS 1+; BASOPHILS % (MANUAL) 0 % (0.0-2.0); EOSINOPHILS % (MANUAL) 2 % (0-4); LYMPHOCYTES % (MANUAL) 9 % (16-48); MONOCYTES % (MANUAL) 10 % (0-11.0); NEUTROPHILS % (MANUAL) 79 (42-76); PLATELET ESTIMATE DECREASED; ROULEAUX 1+
[2024-08-10 14:03] LABS: HIV-1 p24 ANTIGEN NON REACTIVE (NONREACTIVE); HIV-1/2 ANTIBODY REACTIVE (NONREACTIVE)
[2024-08-10] MEDS: ZINC SULFATE 220 MG CAPSULE PO SCH (16:24)
[2024-08-11] VITALS: BP 95/49; TEMP 97.4; O2SAT 97
[2024-08-11 04:00] VITALS: BP 108/45; TEMP 98.2; O2SAT 95
[2024-08-11 08:00] VITALS: BP 110/51; TEMP 97.5; O2SAT 97
[2024-08-11 08:10] LABS: IMMUNOGLOBULIN A, SERUM 416 mg/dL (90-386); IMMUNOGLOBULIN G, SERUM 1344 mg/dL (603-1613); IMMUNOGLOBULIN M, SERUM 76 mg/dL (20-172)
[2024-08-11 08:14] LABS: ALBUMIN 2.4 g/dL (3.4-5.0); BILIRUBIN,TOTAL 27.6 mg/dL (0.2-1.0); CALCIUM, SERUM 9.7 mg/dL (8.5-10.1); POTASSIUM 4.4 mmol/L (3.5-5.1); TOTAL PROTEIN, SERUM 5.2 g/dL (6.4-8.2)
[2024-08-11 08:27] LABS: BASOPHILS % (AUTO) 0.2 % (0.0-2.0); EOSINOPHILS # (AUTO) 0.1 K/uL (0.0-0.7); EOSINOPHILS % (AUTO) 2.6 % (0.0-6.0); HEMATOCRIT 26 % (39-51); HEMOGLOBIN 8.6 g/dL (13.5-17.5); LYMPHOCYTES # (AUTO) 0.4 K/uL (0.8-4.8); LYMPHOCYTES % (AUTO) 7.2 % (20.0-44.0); MEAN CORPUSCULAR HEMOGLOBIN 30 PG (26.0-33.0); MEAN CORPUSCULAR HGB CONC 33 g/dl (31.0-36.0); MEAN CORPUSCULAR VOLUME 90 fL (80-96); MONOCYTES # (AUTO) 0.5 K/uL (0.1-1.30); MONOCYTES % (AUTO) 10.2 % (2.0-12.0); NEUTROPHILS % (AUTO) 79.8 % (43.0-81.0); RED BLOOD CELL COUNT(AUTO) 2.86 MIL/uL (4.5-6.0); RED CELL DISTRIBUTION WIDTH 26.6 % (11.5-15.0)
[2024-08-11 08:29] LABS: PLATELET COUNT (AUTO) 41 K/uL (150-450)
[2024-08-11 09:11] LABS: HEPATITIS B SURFACE AB Reactive (.)
[2024-08-11] MEDS: ALBUMIN 25% 25 GM in PREMIX 1 EA IV SCH (10:45)
[2024-08-11 11:08] LABS: *ANA ANTI-CENTROMERE B AB <0.2 AI (0.0-0.9); *ANA ANTI-DNA(DS) AB, QN <1 IU/mL (0-9); *ANA ANTI-JO-1 <0.2 AI (0.0-0.9); *ANA ANTICHROMATIN ANTIBODY <0.2 AI (0.0-0.9); *ANA RNP ANTIBODIES 0.2 AI (0.0-0.9); *ANA SJOGREN'S ANTI-SS-A <0.2 AI (0.0-0.9); *ANA SJOGREN'S ANTI-SS-B <0.2 AI (0.0-0.9); *ANAANTI-SCLERODERMA-70 AB <0.2 AI (0.0-0.9); *ANASMITH AB <0.2 AI (0.0-0.9)
[2024-08-11 11:57] LABS: ANISOCYTOSIS 1+; BAND % (MANUAL) 1 % (0.0-5.0); BASOPHILS % (MANUAL) 0 % (0.0-2.0); EOSINOPHILS % (MANUAL) 2 % (0-4); LYMPHOCYTES % (MANUAL) 7 % (16-48); MONOCYTES % (MANUAL) 9 % (0-11.0); NEUTROPHILS % (MANUAL) 81 (42-76); OVALOCYTES FEW; PLATELET ESTIMATE DECREASED
[2024-08-11 12:00] VITALS: BP 106/53; TEMP 97.3; O2SAT 96
[2024-08-11 13:11] LABS: FOLIC ACID 6.1 ng/mL (>3.0)
[2024-08-11 16:00] VITALS: BP 121/53; TEMP 98.1; O2SAT 96
[2024-08-11] MEDS ORDERED: MORPHINE SULFATE/PF 30 MG in IV NS 0.9% 27 ML, PCA TOTAL VOLUME 1 BAG IV PRN (16:00)
[2024-08-11] MEDS: MORPHINE SULFATE PF DRIP 250 MG in IV D5W 240 ML IV PRN (17:04)
[2024-08-11] MEDS: KEY,NONCONTROL,TO KEEP IN PYXI 1 EA MC ONE ×2 (17:23→17:49)
[2024-08-11 20:00] VITALS: BP 71/31; TEMP 98.1; O2SAT 97
[2024-08-12] VITALS: BP 80/31; TEMP 97.9; O2SAT 97
[2024-08-12] MEDS ORDERED: SCOPOLAMINE PATCH 1 MG/72HR TD ONE (00:17)
[2024-08-12] MEDS: SCOPOLAMINE PATCH 1 MG/72HR TD PRN (00:18)
[2024-08-12] MEDS ORDERED: KEY,NONCONTROL,TO KEEP IN PYXI 1 EA MC ONE ×2 (00:25→06:48)
[2024-08-12 04:00] VITALS: BP 74/34; TEMP 98.1; O2SAT 94
== END 2024-08-12 09:55 | DRG 441 ==
LOC: ER 22:05 → TELE-TD 08-07 01:55 → TELE1 08-09 10:43
PROVIDERS: ADMIT Student in an Organized Health Care Education/Training Program; ATTEND Internal Medicine
DX: K76.82 Hepatic encephalopathy (principal); E43 Unspecified severe protein-calorie malnutrition; K76.7 Hepatorenal syndrome; N17.0 Acute kidney failure with tubular necrosis; K85.90 Acute pancreatitis without necrosis or infection, unspecified; K83.1 Obstruction of bile duct; C22.0 Liver cell carcinoma; Z68.41 Body mass index [BMI] 40.0-44.9, adult; E72.20 Disorder of urea cycle metabolism, unspecified; E87.1 Hypo-osmolality and hyponatremia; E87.20 Acidosis, unspecified; D68.9 Coagulation defect, unspecified; K76.6 Portal hypertension; Z66 Do not resuscitate; Z51.5 Encounter for palliative care; K72.10 Chronic hepatic failure without coma; K74.60 Unspecified cirrhosis of liver; Z20.822 Contact with and (suspected) exposure to COVID-19; E11.9 Type 2 diabetes mellitus without complications; E78.5 Hyperlipidemia, unspecified; I50.9 Heart failure, unspecified; I11.0 Hypertensive heart disease with heart failure; J44.9 Chronic obstructive pulmonary disease, unspecified; Z90.49 Acquired absence of other specified parts of digestive tract; Z86.19 Personal history of other infectious and parasitic diseases; Z79.899 Other long term (current) drug therapy; Z79.84 Long term (current) use of oral hypoglycemic drugs; Z88.8 Allergy status to other drugs, medicaments and biological substances; Z79.51 Long term (current) use of inhaled steroids; E87.5 Hyperkalemia; R74.01 Elevation of levels of liver transaminase levels; R74.8 Abnormal levels of other serum enzymes; D69.59 Other secondary thrombocytopenia; M89.8X9 Other specified disorders of bone, unspecified site; K44.9 Diaphragmatic hernia without obstruction or gangrene; D64.9 Anemia, unspecified; N28.89 Other specified disorders of kidney and ureter; E86.9 Volume depletion, unspecified; T50.2X5A Adverse effect of carbonic-anhydrase inhibitors, benzothiadiazides and other diuretics, initial encounter; Y92.9 Unspecified place or not applicable; E83.52 Hypercalcemia
CPT/HCPCS: 36415; 71045-TC; 76700-TC; 76770-TC; 80048-TC; 80053-TC; 80076-TC; 81001; 82105; 82140-TC; 82550-TC; 82607-TC; 82728-TC; 82784; 82962-TC; 83540-TC; 83605-TC; 83615-TC; 83690-TC; 83735-TC; 83880; 83970; 84100-TC; 84155; 84165; 84443-TC; 84484-TC; 85025-TC; 85730-TC; 86140-TC; 86225; 86235; 86334; 86431-TC; 86704; 86705; 86706; 86803; 87040-TC; 87340; 87536; 87806; 92526; 92611-TC; 97110-TC; 97112-TC; 97530-TC; A4216; A4223; G0378; J1170; J1815; J1940; J2274; J2405; J2470; J3490; J7030; J7050; J7060; P9047; Q0177